=== PATIENT | male | born 1935 | race Caucasian/White ===

== ENCOUNTER 2016-12-28 10:57 | Emergency (ER) | payer MEDICARE, OTHER, MEDICAID ==
--- NOTE | 2016-12-28 11:06 | ER Document Report ---
ED Medical Screen (RME) - General Chief Complaint: Skin Sore(s) Stated Complaint: LEFT BUTTOCK WOUND Time Seen by Provider: 12/28/16 11:05 Notes: Patient presents after referral from dermatology office. He has a nonhealing right buttock decubitus ulcer. It is been failing outpatient therapy. TRAVEL OUTSIDE OF THE [place] IN LAST 30 DAYS: No - Related Data Allergies/Adverse Reactions: tamsulosin [From Flomax] Allergy (Verified 12/28/16 11:04) tobramycin Allergy (Verified 12/28/16 11:04) Past Medical History Renal/ Medical History: Denies: Hx Peritoneal Dialysis Physical Exam - Vital signs Vitals: Temp Pulse Resp BP Pulse Ox 97.8 F 114 H 22 H 122/67 97 12/28/16 11:03 12/28/16 11:03 12/28/16 11:03 12/28/16 11:03 12/28/16 11:03 Course - Vital Signs Vital signs: Temp Pulse Resp BP Pulse Ox 97.8 F 114 H 22 H 122/67 97 12/28/16 11:03 12/28/16 11:03 12/28/16 11:03 12/28/16 11:03 12/28/16 11:03
[2016-12-28] MEDS ORDERED: NORMAL SALINE 1000 ML 1,000 ML IV ONE (11:07)
[2016-12-28 11:45] LABS: VENOUS BLOOD BASE EXCESS 1.8 mmol/L; VENOUS BLOOD HCO3 27.6 mmol/L (20-32); VENOUS BLOOD PCO2 48.4 mmHg (35-63); VENOUS BLOOD PH 7.37 (7.30-7.42)
[2016-12-28 11:46] LABS: ABSOLUTE BASOPHILS # (AUTO) 0.1 10^3/uL (0.0-0.2); ABSOLUTE EOSINOPHILS # (AUTO) 0.2 10^3/uL (0.0-0.6); ABSOLUTE MONOCYTES (AUTO) 0.8 10^3/uL (0.1-1.4); ABSOLUTE NEUT (AUTO) 7.3 10^3/uL (1.7-8.2); BASOPHILS % (AUTO) 0.9 % (0-2); EOSINOPHILS % (AUTO) 2.6 % (0-6); HEMATOCRIT 31.4 % (37.9-51.0); HGB HCT DIFFERENCE -1.4; LYMPHOCYTES % (AUTO) 10.7 % (13-45); MEAN CORPUSCULAR HEMOGLOBIN 25.2 pg (27.0-33.4); MEAN CORPUSCULAR HGB CONC 31.7 g/dL (32.0-36.0); MEAN CORPUSCULAR VOLUME 80 fl (80-97); MONOCYTES % (AUTO) 8.4 % (3-13); RED BLOOD COUNT 3.94 10^6/uL (4.35-5.55); RED CELL DISTRIBUTION WIDTH 15.5 % (11.5-14.0); SEGMENTED NEUTROPHILS % (AUTO) 77.4 % (42-78); WHITE BLOOD COUNT 9.5 10^3/uL (4.0-10.5)
[2016-12-28 12:04] LABS: ALANINE AMINOTRANSFERASE 28 U/L (21-72); ALBUMIN 3.1 g/dL (3.5-5.0); ALKALINE PHOSPHATASE 96 U/L (38-126); ANION GAP 13 (5-19); ASPARTATE AMINO TRANSFERASE 27 U/L (17-59); BILIRUBIN,DIRECT 0.5 mg/dL (0.0-0.4); BILIRUBIN,TOTAL 0.6 mg/dL (0.2-1.3); BLOOD UREA NITROGEN 22 mg/dL (7-20); CALCIUM 10.2 mg/dL (8.4-10.2); CARBON DIOXIDE 27 mmol/L (22-30); CHLORIDE 100 mmol/L (98-107); GLUCOSE 131 mg/dL (75-110); POTASSIUM 4.7 mmol/L (3.6-5.0); SODIUM 139.6 mmol/L (137-145)
[2016-12-28 12:52] LABS: APPEARANCE,URINE CLEAR; BILIRUBIN,URINE NEGATIVE (NEGATIVE); GLUCOSE, URINE NEGATIVE (NEGATIVE); KETONES,URINE NEGATIVE (NEGATIVE); LEUKOCYTE ESTERASE,URINE NEGATIVE (NEGATIVE); NITRITE,URINE NEGATIVE (NEGATIVE); PROTEIN,URINE NEGATIVE (NEGATIVE); URINE SPECIFIC GRAVITY 1.003; UROBILINOGEN,URINE NEGATIVE mg/dL (<2.0)
--- NOTE | 2016-12-28 13:33 | ER Document Report ---
ED Skin Rash/Insect Bite/Abscs - General Mode of Arrival: Ambulatory Information source: Patient TRAVEL OUTSIDE OF THE [place] IN LAST 30 DAYS: No - HPI Patient complains to provider of: Skin rash/lesion, Tender/swollen area Onset: Other - several weeks Onset/Duration: Persistent Quality of rash: Painful Similar symptoms previously: Yes Recently seen / treated by doctor: Yes <MULUGETA MORALES - Last Filed: 12/28/16 13:22> <RAFA ROSADO - Last Filed: 12/28/16 14:51> - General Chief Complaint: Skin Sore(s) Stated Complaint: LEFT BUTTOCK WOUND Time Seen by Provider: 12/28/16 11:05 Notes: Patient is an 81-year-old male who presents to the emergency department today with complaints of a decubitus ulcer to the upper portion of his buttocks. Patient states he has had this sore for several weeks. Patient was seen by dermatology on December 19 and was told to come back if symptoms did not improve. Patient went back today and was sent here from dermatology. Patient states he does sit down most of the day, usually in a chair. Of note, the patient was undergoing a routine cardiac catheterization x2.5 weeks ago at [facility] when he began having chest pain just prior to the procedure and he was found to have a 100% blockage in a lower vessel but this was not stented. (MULUGETA MORALES) - Related Data Allergies/Adverse Reactions: tamsulosin [From Flomax] Allergy (Verified 12/28/16 11:06) tobramycin Allergy (Verified 12/28/16 11:06) Past Medical History - General Information source: Patient - Social History Smoking Status: Former Smoker - 30 years ago Cigarette use (# per day): No Frequency of alcohol use: None Drug Abuse: None Lives with: Alone Family History: Reviewed & Not Pertinent Patient has suicidal ideation: No Patient has homicidal ideation: No - Past Medical History Cardiac Medical History: Reports: Hx Coronary Artery Disease, Hx Heart Attack, Hx Hypercholesterolemia, Hx Hypertension Endocrine Medical History: Reports: Hx Diabetes Mellitus Type 2 - IDDM Renal/ Medical History: Reports: Hx Benign Prostatic Hyperplasia Malignancy Medical History: Reports Hx Prostate Cancer Past Surgical History: Reports: Hx Abdominal Surgery - AAA stented, Hx Cardiac Catheterization, Hx Orthopedic Surgery - right shoulder, Other - Radiation implants for prostate cancer <MULUGETA MORALES - Last Filed: 12/28/16 13:22> Review of Systems - Review of Systems Constitutional: denies: Fever EENT: No symptoms reported Cardiovascular: No symptoms reported Respiratory: No symptoms reported Gastrointestinal: No symptoms reported Genitourinary: No symptoms reported Male Genitourinary: No symptoms reported Musculoskeletal: No symptoms reported Skin: See HPI, Other - decubitus ulcer Hematologic/Lymphatic: No symptoms reported Neurological/Psychological: No symptoms reported -: Yes All other systems reviewed and negative <MULUGETA MORALES - Last Filed: 12/28/16 13:22> Physical Exam - Vital signs Interpretation: Normal - General General appearance: Appears well, Alert - HEENT Head: Normocephalic, Atraumatic Eyes: Normal Pupils: PERRL - Respiratory Respiratory status: No respiratory distress Breath sounds: Normal Chest palpation: Normal - Cardiovascular Rhythm: Regular Heart sounds: Normal auscultation Murmur: No - Abdominal Inspection: Normal Distension: No distension Bowel sounds: Normal Tenderness: Nontender Organomegaly: No organomegaly - Back Back: Normal, Nontender - Extremities General upper extremity: Normal inspection, Normal strength. No: Edema General lower extremity: Normal inspection, Normal strength. No: Edema - Neurological Neuro grossly intact: Yes Cognition: Normal Orientation: AAOx4 Juan A Coma Scale Eye Opening: Spontaneous [place] Coma Scale Verbal: Oriented [place] Coma Scale Motor: Obeys Commands [place] Coma Scale Total: 15 Speech: Normal - Psychological Associated symptoms: Normal affect, Normal mood <ANDREWMULUGETA - Last Filed: 12/28/16 13:22> <RAFA ROSADO - Last Filed: 12/28/16 14:51> - Vital signs Vitals: Temp Pulse Resp BP Pulse Ox 97.8 F 114 H 22 H 122/67 97 12/28/16 11:03 12/28/16 11:03 12/28/16 11:03 12/28/16 11:03 12/28/16 11:03 - Skin Notes: Two decubitus ulcers on upper portion of buttocks, one on the right gluteal cleft and one on the left gluteal cleft which touch when patient sits down. Both are 1.5 cm x 0.5 cm. Left ulcer is stage IV, able to be probed deep into subcutaneous tissue. Right is not as deep, there is eschar formation. (MULUGETA MORALES) Course - Laboratory Result Diagrams: 12/28/16 11:27 12/28/16 11:27 - Consults Surgery Time consulted: 13:27 Consulted provider: will come to ER <MULUGETA MORALES - Last Filed: 12/28/16 13:22> - Laboratory Result Diagrams: 12/28/16 11:27 12/28/16 11:27 - Consults Dr. Arnold Time consulted: 13:37 Consulted provider: will come to ER <RAFA ROSADO - Last Filed: 12/28/16 14:51> - Re-evaluation Re-evalutation: 12/28/16 14:48 Dr. Arnold came to see the patient and opened up the left-sided abscess to clean it out. It bled such that he had to place some chromic sutures in it. He will also put packing in. He attempted to get the patient scheduled for the wound care clinic but it would be 10 days before they can be seen, so he requests the patient go to [facility] on Sunday for follow-up. (RAFA ROSADO) - Vital Signs Vital signs: Temp Pulse Resp BP Pulse Ox 97.8 F 114 H 22 H 122/67 97 12/28/16 11:03 12/28/16 11:03 12/28/16 11:03 12/28/16 11:03 12/28/16 11:03 - Laboratory Laboratory results interpreted by me: 12/28/16 12/28/16 11:27 11:27 RBC 3.94 L Hgb 10.0 L Hct 31.4 L MCH 25.2 L MCHC 31.7 L RDW 15.5 H Lymphocytes % 10.7 L BUN 22 H Glucose 131 H Direct Bilirubin 0.5 H Albumin 3.1 L Discharge <MULUGETA MORALES - Last Filed: 12/28/16 13:22> <RAFA ROSADO - Last Filed: 12/28/16 14:51> - Discharge Clinical Impression: Decubitus ulcer Qualifiers: Pressure ulcer location: sacral region Pressure ulcer stage: stage 4 Qualified Code(s): L89.154 - Pressure ulcer of sacral region, stage 4 Condition: Stable Disposition: HOME, SELF-CARE Additional Instructions: Follow-up with [facility] on Sunday to have the packing removed and the wound evaluated. Take the dermatology office notes with you to the office visit on Sunday. Call the [facility] today or tomorrow to schedule an appointment time on Sunday. RETURN TO THE EMERGENCY ROOM IF ANY NEW OR WORSENING SYMPTOMS. Referrals: [facility] [Provider Group] - 01/01/17 (Call for an appointment time.) Scribe Attestation: 12/28/16 14:50 I personally performed the services described in the documentation, reviewed and edited the documentation which was dictated to the scribe in my presence, and it accurately records my words and actions. (RAFA ROSADO) Scribe Documentation - Scribe Written by Raysa:: Raysa Watson, 12/28/2016 1344 acting as scribe for :: Magali <MULUGETA MORALES - Last Filed: 12/28/16 13:22>
[2016-12-28] MEDS ORDERED: LIDOCAINE 1% INJ-PF (10 MG/ML) 30 ML SDV ONE (13:41)
[2016-12-28 15:11] VITALS: BP 128/69
--- NOTE | 2016-12-28 15:32 | OPERATIVE REPORT E ---
Operative Report NAME: DADA GILLETTE : 1935 AGE: 81Y DATE OF SURGERY: 12/28/2016 ROOM: PREOPERATIVE DIAGNOSES: 1. Sacral decubitus ulcer on the right sacral area about 2.5 cm, about stage 2 to 3 with necrotic tissue. 2. A left sacral decubitus ulcer about 1 cm in diameter but tracking down towards the rectum and tunneling about 3 cm deep. OPERATION: Sharp debridement of right sacral decubitus ulcer and unroofing of the left sacral decubitus ulcer about 3 cm distal towards the rectum. SURGEON: JEANCARLOS DELEON M.D. ANESTHESIA: Local with Xylocaine 1%. INDICATION: This is an 81-year-old male who has been having off and on sacral ulcers for the past 2 years. 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 The patient was then referred to come to the emergency room. Apparently the patient had a heart attack about 2 weeks ago, and he claims that his barrel rifler operator injected his decubitus ulcers a few weeks ago. DESCRIPTION OF PROCEDURE: The patient was placed in a prone position and the pericoccygeal area subsequently prepped and draped in the usual sterile fashion. Local anesthesia was infiltrated along the right sacral decubitus with necrotic skin. Next, the left partially open decubitus ulcer was then probed deep towards the rectum about 3 cm further. This track was then infiltrated with 1% Xylocaine. Next, the right coccygeal ulcer was debrided sharply with the use of an 11 blade. Partial debridement of the skin was then performed. There was also an indurated or hard area underneath the skin but no obvious abscess. Next, attention was then directed to the left coccygeal ulcer, and this was subsequently unroofed with the use of an 11 blade to about 3 cm distal towards the rectum. There was minimal necrotic tissue inside the cavity. There was some bleeding noted along the skin, and this was then controlled with a suture ligature using 5-0 and 3-0 Vicryl. About 6 sutures were placed to stop the bleeding primarily along the dermatologic layer. Skin was slightly thickened. The cavity was further inspected, and no evidence of further necrotic tissue underneath it. The ulcer site also tracked proximally, and this was then anesthetized with 1% Xylocaine and an incision made to further unroof this proximally to another 1 cm. Again, no evidence of necrotic tissue underneath. The ulcer appears to be quite deep and appears to be right at the fascial layer. Next, the cavity was subsequently packed with 1/4-inch Iodoform gauze. The hemostasis was controlled. Sterile dressings placed over the operative sites. The patient tolerated the procedure well. Estimated blood loss about 10 mL. The patient will be referred to the Surgical Clinic in about 48 to 72 hours. DICTATING PHYSICIAN: JEANCARLOS DELEON M.D. [id number] PHY#: [id number] ID: [id number] JOB#: [id number] ACCT: [id number] cc:JEANCARLOS DELEON M.D. >
== END 2016-12-28 15:10 | disposition home or self-care (01) ==
LOC: ER 10:57
PROC: 0J990ZZ Drainage of Buttock Subcutaneous Tissue and Fascia, Open Approach (ICD-10-PCS; principal; 2016-12-28)
DX: L89.154 Pressure ulcer of sacral region, stage 4 (principal); Z87.891 Personal history of nicotine dependence
CPT/HCPCS: 99284; 36415; 87040; 87086; 85025; 80053; 81001; 82803; 83605; 10061; J3490; J7030

== ENCOUNTER → 2017-01-12 | Outpatient (CLI) | payer MEDICARE, MEDICAID ==
[2017-01-12 12:27] LABS: ABSOLUTE BASOPHILS # (AUTO) 0.1 10^3/uL (0.0-0.2); ABSOLUTE EOSINOPHILS # (AUTO) 0.2 10^3/uL (0.0-0.6); ABSOLUTE LYMPHOCYTES (AUTO) 0.9 10^3/uL (0.5-4.7); ABSOLUTE MONOCYTES (AUTO) 0.6 10^3/uL (0.1-1.4); BASOPHILS % (AUTO) 0.6 % (0-2); EOSINOPHILS % (AUTO) 2.2 % (0-6); HEMATOCRIT 28.8 % (37.9-51.0); HEMOGLOBIN 9.4 g/dL (13.5-17.0); HGB HCT DIFFERENCE -0.6; LYMPHOCYTES % (AUTO) 9.5 % (13-45); MEAN CORPUSCULAR HGB CONC 32.8 g/dL (32.0-36.0); MEAN CORPUSCULAR VOLUME 79 fl (80-97); MONOCYTES % (AUTO) 5.7 % (3-13); RED BLOOD COUNT 3.63 10^6/uL (4.35-5.55); RED CELL DISTRIBUTION WIDTH 16.3 % (11.5-14.0); WHITE BLOOD COUNT 9.8 10^3/uL (4.0-10.5)
[2017-01-12 12:52] LABS: ALANINE AMINOTRANSFERASE 24 U/L (21-72); ALBUMIN 2.7 g/dL (3.5-5.0); ALKALINE PHOSPHATASE 91 U/L (38-126); ANION GAP 11 (5-19); ASPARTATE AMINO TRANSFERASE 20 U/L (17-59); BILIRUBIN,DIRECT 0.5 mg/dL (0.0-0.4); BILIRUBIN,TOTAL 0.6 mg/dL (0.2-1.3); BLOOD UREA NITROGEN 20 mg/dL (7-20); CALCIUM 9.8 mg/dL (8.4-10.2); CARBON DIOXIDE 26 mmol/L (22-30); CHLORIDE 102 mmol/L (98-107); CREATININE RESULT 1.04 mg/dL (0.52-1.25); GLUCOSE 146 mg/dL (75-110); POTASSIUM 4.2 mmol/L (3.6-5.0); SODIUM 139.3 mmol/L (137-145); TOTAL PROTEIN 5.9 g/dL (6.3-8.2)
[2017-01-12 13:11] LABS: ERYTHROCYTE SEDIMENTATION RATE 55 mm/hr (0-20)
[2017-01-12 13:14] LABS: C-REACTIVE PROTEIN 154.9 mg/L (<10.0)
== END ==
LOC: OD 11:17
PROVIDERS: ATTEND Nurse Practitioner Family
DX: L89.324 Pressure ulcer of left buttock, stage 4 (principal)
CPT/HCPCS: 36415; 80053; 85025; 85652; 86140

== ENCOUNTER → 2017-01-26 | Outpatient (CLI) | payer MEDICARE, MEDICAID ==
--- NOTE | 2017-01-26 15:39 | RADIOLOGY REPORT (SQ) ---
EXAM DESCRIPTION: PELVIS AP COMPLETED DATE/TIME: 01/26/2017 12:53 pm REASON FOR STUDY: PRESSURE ULCER SACRAL REGION, STAGE 4 L89.154 PRESSURE ULCER OF SACRAL REGION, ST AGE 2 COMPARISON: None. NUMBER OF VIEWS: One view TECHNIQUE: AP Pelvis LIMITATIONS: None. FINDINGS: MINERALIZATION: Normal. HIPS: No acute fracture or dislocation. No worrisome bone lesions. PELVIS AND SACRUM: No acute fracture or dislocation. No worrisome bone lesions. PUBIS AND ISCHIUM: No acute fracture. LOWER LUMBAR SPINE: No significant findings as visualized. SOFT TISSUES: No findings. OTHER: Iliac stents are present. IMPRESSION: There is no evidence of osteomyelitis. TECHNICAL DOCUMENTATION: JOB ID: [id number] [employer]- All Rights Reserved
== END ==
LOC: OD 12:32
PROVIDERS: ATTEND Surgery
DX: L89.154 Pressure ulcer of sacral region, stage 4 (principal)
CPT/HCPCS: 72170

== ENCOUNTER 2017-02-08 11:03 | Inpatient (IN) | payer MEDICARE, MEDICAID ==
[2017-02-08] MEDS ORDERED: NORMAL SALINE 1000 ML 1,000 ML IV PRN ×2 (11:29→13:43)
[2017-02-08] MEDS ORDERED: ONDANSETRON HCL INJ/PF 4 MG/2 ML SDV IV ONE (11:29)
--- NOTE | 2017-02-08 11:35 | ER Document Report ---
ED GI/ - General Stated Complaint: VOMITING,DIARRHEA Time Seen by Provider: 02/08/17 11:13 Mode of Arrival: Stretcher Information source: Patient TRAVEL OUTSIDE OF THE [place] IN LAST 30 DAYS: No - HPI Patient complains to provider of: Diarrhea, Vomiting Onset: This morning Quality of pain: No pain Associated symptoms: None Notes: 02/08/17 11:33 Patient is an 81-year-old male brought to the emergency room by EMS for vomiting and diarrhea, he reports that he was previously constipated and took half a bottle mag citrate yesterday evening, also ate some shrimp scampi, when he woke up this morning he had explosive diarrhea and an episode of vomiting, at time of my initial evaluation he reports feeling much better, denies any abdominal pain, no fevers, he does have a history of a sacral decubitus which she is seen at the wound care clinic for - Related Data Allergies/Adverse Reactions: tamsulosin [From Flomax] Allergy (Verified 12/28/16 11:06) tobramycin Allergy (Verified 12/28/16 11:06) Past Medical History - General Information source: Patient - Social History Smoking Status: Unknown if Ever Smoked Family History: Reviewed & Not Pertinent - Past Medical History Cardiac Medical History: Reports: Hx Coronary Artery Disease, Hx Heart Attack, Hx Hypercholesterolemia, Hx Hypertension Endocrine Medical History: Reports: Hx Diabetes Mellitus Type 2 - IDDM Renal/ Medical History: Reports: Hx Benign Prostatic Hyperplasia. Denies: Hx Peritoneal Dialysis Malignancy Medical History: Reports Hx Prostate Cancer Past Surgical History: Reports: Hx Abdominal Surgery - AAA stented, Hx Cardiac Catheterization, Hx Orthopedic Surgery - right shoulder, Other - Radiation implants for prostate cancer Review of Systems - Review of Systems Constitutional: No symptoms reported EENT: No symptoms reported Cardiovascular: No symptoms reported Respiratory: No symptoms reported Gastrointestinal: See HPI Genitourinary: No symptoms reported Male Genitourinary: No symptoms reported Musculoskeletal: No symptoms reported Skin: No symptoms reported Hematologic/Lymphatic: No symptoms reported Neurological/Psychological: No symptoms reported -: Yes All other systems reviewed and negative Physical Exam - Vital signs Vitals: Resp Pulse Ox 12 100 02/08/17 11:07 02/08/17 11:07 Interpretation: Normal - General General appearance: Appears well, Alert - HEENT Head: Normocephalic, Atraumatic Eyes: Normal Pupils: PERRL - Respiratory Respiratory status: No respiratory distress Chest status: Nontender Breath sounds: Normal Chest palpation: Normal - Cardiovascular Rhythm: Regular Heart sounds: Normal auscultation Murmur: No - Abdominal Inspection: Normal Distension: No distension Bowel sounds: Normal Tenderness: Nontender Organomegaly: No organomegaly - Rectal Notes: Large sacral decubiti 2, no active drainage, mild surrounding erythema - Back Back: Normal, Nontender - Extremities General upper extremity: Normal inspection, Nontender, Normal color, Normal ROM , Normal temperature General lower extremity: Normal inspection, Nontender, Normal color, Normal ROM , Normal temperature, Normal weight bearing. No: Sharee's sign Knee: Other - Multiple abrasions to bilateral knees with ecchymosis to bilateral lower legs - Neurological Neuro grossly intact: Yes Cognition: Normal Orientation: AAOx4 [place] Coma Scale Eye Opening: Spontaneous Juan A Coma Scale Verbal: Oriented Juan A Coma Scale Motor: Obeys Commands Juan A Coma Scale Total: 15 Speech: Normal Motor strength normal: LUE, RUE, LLE, RLE Sensory: Normal - Psychological Associated symptoms: Normal affect, Normal mood - Skin Skin Temperature: Warm Skin Moisture: Dry Skin Color: Normal Course - Re-evaluation Re-evalutation: 02/08/17 17:06 Patient was discussed with Dr. Osorio who agrees to admit for further evaluation and treatment - Vital Signs Vital signs: Temp Pulse Resp BP Pulse Ox 97.7 F 90 20 190/94 H 98 02/08/17 12:02 02/08/17 12:02 02/08/17 14:01 02/08/17 14:01 02/08/17 14:00 - Laboratory Result Diagrams: 02/08/17 11:53 02/08/17 11:53 Laboratory results interpreted by me: 02/08/17 02/08/17 02/08/17 11:53 11:53 15:03 WBC 16.0 H RBC 4.34 L Hgb 11.0 L Hct 34.5 L MCH 25.4 L MCHC 31.9 L RDW 17.4 H Seg Neuts % (Manual) 85 H Band Neutrophils % 1 L Lymphocytes % (Manual) 9 L Abs Neuts (Manual) 13.8 H BUN 33 H Creatinine 1.47 H Est GFR ( Amer) 55 L Est GFR (Non-Af Amer) 46 L Glucose 254 H Direct Bilirubin 0.6 H Albumin 3.1 L Lipase 18.0 L Urine Protein 100 H Urine Ketones TRACE H Urine Blood MODERATE H Urine Urobilinogen 2.0 H - Diagnostic Test Radiology reviewed: Image reviewed, Reports reviewed Discharge - Discharge Clinical Impression: Vomiting and diarrhea, Partial small bowel obstruction, Colitis Pneumonia Qualifiers: Pneumonia type: due to unspecified organism Laterality: right Lung location: lower lobe of lung Qualified Code(s): J18.1 - Lobar pneumonia, unspecified organism Condition: Stable Disposition: ADMITTED INPATIENT Admitting Provider: Hospitalist Unit Admitted: Medical Floor Referrals: CATRACHO DUBOSE PA [Primary Care Provider] - Follow up as needed
[2017-02-08 12:25] LABS: HEMATOCRIT 34.5 % (37.9-51.0); HGB HCT DIFFERENCE -1.5; MEAN CORPUSCULAR HEMOGLOBIN 25.4 pg (27.0-33.4); MEAN CORPUSCULAR HGB CONC 31.9 g/dL (32.0-36.0); MEAN CORPUSCULAR VOLUME 80 fl (80-97); RED BLOOD COUNT 4.34 10^6/uL (4.35-5.55); RED CELL DISTRIBUTION WIDTH 17.4 % (11.5-14.0)
[2017-02-08 12:39] LABS: ALANINE AMINOTRANSFERASE 28 U/L (21-72); ALBUMIN 3.1 g/dL (3.5-5.0); ALKALINE PHOSPHATASE 89 U/L (38-126); ANION GAP 14 (5-19); ASPARTATE AMINO TRANSFERASE 31 U/L (17-59); BILIRUBIN,DIRECT 0.6 mg/dL (0.0-0.4); BILIRUBIN,TOTAL 0.6 mg/dL (0.2-1.3); BLOOD UREA NITROGEN 33 mg/dL (7-20); CALCIUM 9.8 mg/dL (8.4-10.2); CARBON DIOXIDE 25 mmol/L (22-30); CHLORIDE 104 mmol/L (98-107); CREATININE RESULT 1.47 mg/dL (0.52-1.25); GLUCOSE 254 mg/dL (75-110); POTASSIUM 4.7 mmol/L (3.6-5.0); SODIUM 143.1 mmol/L (137-145); TOTAL PROTEIN 6.9 g/dL (6.3-8.2)
[2017-02-08 12:54] LABS: ANISOCYTOSIS 1+; BAND NEUTROPHILS % (MANUAL) 1 % (3-5); BASOPHILS % (MANUAL) 0 % (0-2); EOSINOPHILS % (MANUAL) 0 % (0-6); LYMPHOCYTES % (MANUAL) 9 % (13-45); MICROCYTOSIS SLIGHT; POLYCHROMASIA SLIGHT; TOTAL CELLS COUNTED 100; TOXIC GRANULATION SLIGHT
[2017-02-08 12:55] LABS: PLATELET CLUMPS PRESENT
[2017-02-08] MEDS ORDERED: ACETAMINOPHEN 325 MG TABLET PO ONE (13:43)
[2017-02-08 15:25] LABS: APPEARANCE,URINE SLIGHTLY-CLOUDY; BILIRUBIN,URINE NEGATIVE (NEGATIVE); GLUCOSE, URINE NEGATIVE (NEGATIVE); KETONES,URINE TRACE mg/dL (NEGATIVE); LEUKOCYTE ESTERASE,URINE NEGATIVE (NEGATIVE); NITRITE,URINE NEGATIVE (NEGATIVE); PROTEIN,URINE 100 mg/dL (NEGATIVE); URINE SPECIFIC GRAVITY 1.021
--- NOTE | 2017-02-08 16:54 | RADIOLOGY REPORT (SQ) ---
EXAM DESCRIPTION: CT ABD/PELVIS WITH IV ONLY COMPLETED DATE/TIME: 02/08/2017 4:19 pm REASON FOR STUDY: abd pain COMPARISON: None. TECHNIQUE: CT scan of the abdomen and pelvis performed using helical scanning technique with dynamic intravenous contrast injection. No oral contrast. Images reviewed with lung, soft tissue, and bone windows. Reconstructed coronal and sagittal MPR images reviewed. Delayed images for evaluation of the urinary system also acquired. All images stored on PACS. All CT scanners at this facility use dose modulation, iterative reconstruction, and/or weight based d osing when appropriate to reduce radiation dose to as low as reasonably achievable (ALARA). [facility]: Dose Right [facility]: CareDose [facility]: Dose Right [facility]: Teradose 4D [facility]: Amvona CONTRAST TYPE AND DOSE: contrast/concentration: Isovue 370.00 mg/ml; Total Contrast Delivered: 99.0 ml; Total Saline Delivered: 45.0 ml RENAL FUNCTION: Creatinine 1.5 BUN 33 RADIATION DOSE: Up-to-date CT equipment and radiation dose reduction techniques were employed. CTDIv ol: 5.8 - 7.5 mGy. DLP: 705 mGy-cm.. LIMITATIONS: None. FINDINGS: LOWER CHEST: Opacification is present right lower lobe. Peripheral blebs are present on t he right. A minimal pneumothorax cannot entirely be excluded. LIVER: Normal size. No masses. No dilated ducts. SPLEEN: Normal size. No focal lesions. PANCREAS: No masses. No significant calcifications. No adjacent inflammation or peripancreatic fluid collections. Pancreatic duct not dilated. GALLBLADDER: No identified stones by CT criteria. No inflammatory changes to suggest cholecystitis. ADRENAL GLANDS: No significant masses or asymmetry. RIGHT KIDNEY AND URETER: No solid masses. Nonobstructing upper calyceal calculi are present. No h ydronephrosis or hydroureter. LEFT KIDNEY AND URETER: No solid masses. Nonobstructing intrarenal calculi include an 8 mm lower ca lyceal stone. No hydronephrosis or hydroureter. 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 The aorta narrows in the infrarenal portion but then widens again and there is a large aneurysm invol ving the bifurcation. Stents are present in the iliac arteries and in the distal aorta. RETROPERITONEUM: No retroperitoneal adenopathy, hemorrhage or masses. BOWEL AND PERITONEAL CAVITY: There is somewhat dilated loop of jejunum that measures 4 cm in diameter . No definite transition point is seen. There is considerable large and small bowel gas in abdomen. The ileum is normal in caliber. Stomach is distended with air and fluid. There is mild thickening of the wall of the sigmoid colon and rectum. APPENDIX: Not identified. PELVIS: No mass. No free fluid. Normal bladder. ABDOMINAL WALL: No masses. No hernias. BONES: No significant or acute findings. OTHER: No other significant finding. IMPRESSION: 1. Peripheral emphysematous blebs are present, more on the right. A minimal pneumothor ax cannot entirely be excluded on the right, although the appearance may be secondary to contiguous b lebs. 2. A limited infiltrate or bronchiectasis cannot be excluded in the right lower lobe. 3. Nonobstructing intrarenal calculi. 4. Partial small bowel obstruction, likely at the distal jejunum or proximal ileum. 5. Mild thickening of the wall of the sigmoid colon and rectum, possible inflammatory bowel change. 6. There are 2 areas of aneurysmal dilatation in the aorta with stents in the distal aorta and the i liac arteries. TECHNICAL DOCUMENTATION: JOB ID: [id number] Quality ID # [id number]: Final reports with documentation of one or more dose reduction techniques (e.g., Au tomated exposure control, adjustment of the mA and/or kV according to patient size, use of iterative reconstruction technique) 2010 [employer]- All Rights Reserved
[2017-02-08] MEDS ORDERED: METRONIDAZOLE 500 MG/NS RTU 100 ML IV ONE (17:08)
[2017-02-08] MEDS ORDERED: CIPROFLOXACIN 400 MG/D5W RTU 400 MG/200 ML RTUPB IV ONE (17:09)
[2017-02-08] MEDS ORDERED: ONDANSETRON HCL INJ/PF 4 MG/2 ML SDV IV PRN (18:46)
[2017-02-08] MEDS ORDERED: INSULIN REG, HUMAN 100 UNIT/ML 3 ML VIAL (PYX) SUBCUT PRN (18:53)
[2017-02-08] MEDS ORDERED: DEXTROSE 50%-WATER 25 GM/50 ML DISP.SYRIN IV PRN ×4 (18:53→23:24)
[2017-02-08] MEDS ORDERED: GLUCAGON,HUMAN RECOMB 1 MG INJ IM PRN (18:53)
[2017-02-08] MEDS ORDERED: DEXTROSE 40% GEL 15 GM TUBE PO PRN ×4 (18:53→23:24)
[2017-02-08] MEDS ORDERED: HYDRALAZINE HCL INJ/PF 20 MG/1 ML SDV IV PRN (18:54)
--- NOTE | 2017-02-08 18:59 | PDOC H&P ---
History of Present Illness Admission Date/PCP: 02/08/17 17:14 RHINA LI Patient complains of: Diarrhea History of Present Illness: Patient is an 81-year-old male brought to the emergency room by EMS for vomiting and diarrhea, he reports that he was previously constipated and took half a bottle mag citrate yesterday evening and also ate shrimp scampi, when he woke up this morning he had explosive diarrhea and an episode of vomiting. The ambulance was called and the patient was brought to the emergency room for evaluation where he was given intravenous fluids. He denies any abdominal pain other than cramping earlier, no fevers, he does have a history of a sacral decubitus which she is seen at the wound care clinic and patient reports no foul -smelling drainage. His diarrhea was mixed with small amount of blood. No reported chills or fever, exposure to persons sick with diarrhea, nor recent antibiotic intake. Patient was then referred for admission. Past Medical History Cardiac Medical History: Reports: Coronary Artery Disease, Myocardial Infarction , Hyperlipidema, Hypertension Endocrine Medical History: Reports: Diabetes Mellitus Type 2 - IDDM Past Surgical History Past Surgical History: Reports: Cardiac Catheterization, Orthopedic Surgery - right shoulder, Other - Radiation implants for prostate cancer Social History Information Source: Patient Smoking Status: Former Smoker Frequency of Alcohol Use: None Hx Recreational Drug Use: No Drugs: None Family History Family History: None - Unknown to the patient Parental Family History Reviewed: Yes Children Family History Reviewed: Yes Sibling(s) Family History Reviewed.: Yes Medication/Allergy Home Medications: Acetaminophen [Tylenol] 325 mg PO Q4HP PRN 02/08/17 Ezetimibe [Zetia 10 mg Tablet] 10 mg PO DAILY 02/08/17 Hydroxyzine HCl 10 mg PO Q12 02/08/17 Insulin Glargine,Hum.rec.anlog [Lantus] 15 unit SQ QHS 02/08/17 Insulin Lispro [Humalog] 5 unit SQ AC 02/08/17 Isosorbide Mononitrate [Isosorbide Mononitrate ER] 30 mg PO DAILY 02/08/17 Metoprolol Succinate [Toprol Xl 25 mg Tab.sr] 25 mg PO DAILY 02/08/17 Oxycodone HCl [Oxycontin] 15 mg PO Q4H 02/08/17 Ramipril [Altace 5 mg Capsule] 5 mg PO DAILY 02/08/17 Silodosin [Rapaflo] 8 mg PO DAILY 02/08/17 Simvastatin [Zocor 40 mg Tablet] 40 mg PO DAILY 02/08/17 Zolpidem Tartrate [Ambien] 10 mg PO QHS 02/08/17 Allergies/Adverse Reactions: tamsulosin [From Flomax] Allergy (Verified 02/09/17 04:59) tobramycin Allergy (Verified 02/09/17 04:59) Review of Systems Constitutional: ABSENT: chills, fever(s), headache(s), weakness, weight gain, weight loss Eyes: ABSENT: visual disturbances Ears: ABSENT: hearing changes Nose, Mouth, and Throat: ABSENT: mouth pain, sore throat Cardiovascular: ABSENT: chest pain, dyspnea on exertion, edema, orthropnea, palpitations Respiratory: ABSENT: cough, dyspnea, hemoptysis Gastrointestinal: PRESENT: abdominal pain, constipation, diarrhea, nausea, vomiting. ABSENT: coffee ground emesis, hematemesis, hematochezia, melena Genitourinary: ABSENT: difficulty urinating, dysuria, hematuria Musculoskeletal: ABSENT: joint swelling Integumentary: PRESENT: wounds - Being followed in the wound clinic for decubitus ulcers. ABSENT: pruritus, rash Neurological: ABSENT: abnormal gait, abnormal speech, confusion, dizziness, focal weakness, syncope Psychiatric: ABSENT: anxiety, depression, homidical ideation, suicidal ideation Endocrine: ABSENT: cold intolerance, heat intolerance, polydipsia, polyuria Hematologic/Lymphatic: ABSENT: easy bleeding, easy bruising Physical Exam Vital Signs: Temp Pulse Resp BP Pulse Ox 97.7 F 90 23 H 173/94 H 100 02/08/17 12:02 02/08/17 12:02 02/08/17 17:01 02/08/17 17:01 02/08/17 17:01 General appearance: PRESENT: no acute distress, cooperative Head exam: PRESENT: atraumatic, normocephalic Eye exam: PRESENT: conjunctiva pink, EOMI, PERRLA. ABSENT: scleral icterus Ear exam: PRESENT: normal external ear exam. ABSENT: drainage Mouth exam: PRESENT: dry mucosa, neck supple, tongue midline Throat exam: ABSENT: post pharyngeal erythema, tonsillar erythema Neck exam: ABSENT: carotid bruit, JVD, lymphadenopathy, thyromegaly Respiratory exam: PRESENT: clear to auscultation joseph, unlabored. ABSENT: rales , rhonchi, wheezes Cardiovascular exam: PRESENT: RRR, systolic murmur - Left sternal border 2/6. ABSENT: diastolic murmur, rubs Pulses: PRESENT: normal dorsalis pedis pul Vascular exam: PRESENT: normal capillary refill GI/Abdominal exam: PRESENT: distended - Minimal, normal bowel sounds, soft, tenderness - Minimal. ABSENT: guarding, mass, organolmegaly, rebound Rectal exam: PRESENT: deferred Extremities exam: PRESENT: full ROM. ABSENT: calf tenderness, clubbing, pedal edema Neurological exam: PRESENT: alert, awake, oriented to person, oriented to place , oriented to time, oriented to situation Psychiatric exam: PRESENT: appropriate affect, normal mood. ABSENT: homicidal ideation, suicidal ideation Skin exam: PRESENT: dry, warm, other - Patient has multiple scars and abrasions on both lower extremities. There is a stage II decubitus ulcer on the sacral region on the buttocks bilaterally medially but no purulent drainage noted.. ABSENT: cyanosis Results Impressions: Abdomen/Pelvis CT 02/08/17 15:32 IMPRESSION: 1. Peripheral emphysematous blebs are present, more on the right. A minimal pneumothorax cannot entirely be excluded on the right, although the appearance may be secondary to contiguous blebs. 2. A limited infiltrate or bronchiectasis cannot be excluded in the right lower lobe. 3. Nonobstructing intrarenal calculi. 4. Partial small bowel obstruction, likely at the distal jejunum or proximal ileum. 5. Mild thickening of the wall of the sigmoid colon and rectum, possible inflammatory bowel change. 6. 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 Assessment & Plan - Diagnosis (1) Colitis Is this a current diagnosis for this admission?: Yes (2) Partial small bowel obstruction Is this a current diagnosis for this admission?: Yes (3) Decubitus ulcer limited to breakdown of skin (stage 2) Qualifiers: Pressure ulcer location: sacral region Qualified Code(s): L89.152 - Pressure ulcer of sacral region, stage 2 Is this a current diagnosis for this admission?: Yes (4) Dehydration Is this a current diagnosis for this admission?: Yes (5) Renal calculi Is this a current diagnosis for this admission?: Yes (6) Uncontrolled hypertension Is this a current diagnosis for this admission?: Yes (7) Coronary artery disease Qualifiers: Coronary Disease-Associated Artery/Lesion type: [place] artery [place] vs. transplanted heart: [place] heart Associated angina: without angina Qualified Code(s): I25.10 - Atherosclerotic heart disease of [place] coronary artery without angina pectoris Is this a current diagnosis for this admission?: Yes (8) Hyperlipidemia Qualifiers: Hyperlipidemia type: unspecified Qualified Code(s): E78.5 - Hyperlipidemia , unspecified Is this a current diagnosis for this admission?: Yes (9) Diabetes mellitus type 2 in nonobese Is this a current diagnosis for this admission?: Yes (10) BPH (benign prostatic hyperplasia) Qualifiers: Lower urinary tract symptom presence: unspecified whether lower urinary tract symptoms present Qualified Code(s): N40.0 - Benign prostatic hyperplasia without lower urinary tract symptoms Is this a current diagnosis for this admission?: Yes (11) History of prostate cancer Is this a current diagnosis for this admission?: Yes - Time Time Spent: 50 to 70 Minutes - Inpatient Certification Based on my medical assessment, after consideration of the patient's comorbidities, presenting symptoms, or acuity I expect that the services needed warrant INPATIENT care.: Yes I certify that my determination is in accordance with my understanding of Medicare's requirements for reasonable and necessary INPATIENT services [42 CFR 412.3e].: Yes Medical Necessity: Significant Comorbidiites Make Outpatient Treatment Too Risky , Need Close Monitoring Due to Risk of Patient Decompensation, Need For IV Fluids, Need for IV Antibiotics, Risk of Complication if Not Cared For in Hospital Post Hospital Care: D/C Manager Money Documentation - Plan Summary Plan Summary: The patient will be admitted to the medical floor. We will hydrate the patient with normal saline. Patient had bowel movement so unlikely having mechanical obstruction therefore I will start the patient on liquid diet. Cultures will be done with a urine as well as the blood. We will check stool culture as well. Begin intravenous Invanz. DVT prophylaxis with Lovenox will be placed. At this time she will be placed on sliding scale insulin for his diabetes. We will give as needed hydralazine for uncontrolled blood pressure. We will consult surgery for management of decubitus ulcers as well first for evaluation of the partial small bowel obstruction. Further testing depends on initial evaluation and response to treatment as outlined above.
[2017-02-08] MEDS ORDERED: LEVOFLOXACIN 500 MG/D5W RTU 500 MG/100 ML RTUPB IV ONE (23:00)
--- NOTE | 2017-02-08 23:21 | PDOC CONSULTATION ---
Consultation Consult reason:: Evaluate for possible bowel obstruction History of Present Illness Admission Date/PCP: 02/08/17 18:30 RHINA LI History of Present Illness: 81-year-old male presenting with 2 day history of nausea and vomiting and profuse diarrhea. Has been noted with bloody bowel movements during this admission. Unknown whether he has had any fevers or chills. He has had some mild lower abdominal pain. Has not had any emesis today. No prior abdominal surgeries. No prior colonoscopies. No prior known bowel disease. He has diabetes and coronary artery disease status post myocardial infarction in the past. He has aortoiliac stents in place. Past Medical History Cardiac Medical History: Reports: Coronary Artery Disease, Myocardial Infarction , Hyperlipidema, Hypertension Endocrine Medical History: Reports: Diabetes Mellitus Type 2 - IDDM Past Surgical History Past Surgical History: Reports: Cardiac Catheterization, Orthopedic Surgery - right shoulder, Other - Radiation implants for prostate cancer Social History Smoking Status: Unknown if Ever Smoked - Advance Directive Resuscitation Status: Full Code Family History Family History: None - Unknown to the patient Parental Family History Reviewed: No Children Family History Reviewed: No Sibling(s) Family History Reviewed.: No Medication/Allergy Home Medications: Acetaminophen [Tylenol] 325 mg PO Q4HP PRN 02/08/17 Ezetimibe [Zetia 10 mg Tablet] 10 mg PO DAILY 02/08/17 Hydroxyzine HCl 10 mg PO Q12 02/08/17 Insulin Glargine,Hum.rec.anlog [Lantus] 15 unit SQ QHS 02/08/17 Insulin Lispro [Humalog] 5 unit SQ AC 02/08/17 Isosorbide Mononitrate [Isosorbide Mononitrate ER] 30 mg PO DAILY 02/08/17 Metoprolol Succinate [Toprol Xl 25 mg Tab.sr] 25 mg PO DAILY 02/08/17 Oxycodone HCl [Oxycontin] 15 mg PO Q4H 02/08/17 Ramipril [Altace 5 mg Capsule] 5 mg PO DAILY 02/08/17 Silodosin [Rapaflo] 8 mg PO DAILY 02/08/17 Simvastatin [Zocor 40 mg Tablet] 40 mg PO DAILY 02/08/17 Zolpidem Tartrate [Ambien] 10 mg PO QHS 02/08/17 Allergies/Adverse Reactions: tamsulosin [From Flomax] Allergy (Verified 12/28/16 11:06) tobramycin Allergy (Verified 12/28/16 11:06) Physical Exam Vital Signs: Temp Pulse Resp BP Pulse Ox 99.1 F 93 18 152/73 H 100 02/08/17 19:39 02/08/17 19:39 02/08/17 19:39 02/08/17 19:39 02/08/17 19:39 General appearance: PRESENT: no acute distress, cooperative Eye exam: PRESENT: conjunctiva pink Respiratory exam: PRESENT: clear to auscultation joseph Cardiovascular exam: PRESENT: RRR, systolic murmur GI/Abdominal exam: PRESENT: other - Soft, nondistended, mild lower abdominal tenderness without peritoneal signs. Skin exam: PRESENT: other - 2 sacral decubitus ulcers which are clean with no erythema no drainage. Appears to be granulating. Results Impressions: Abdomen/Pelvis CT 02/08/17 15:32 IMPRESSION: 1. Peripheral emphysematous blebs are present, more on the right. A minimal pneumothorax cannot entirely be excluded on the right, although the appearance may be secondary to contiguous blebs. 2. A limited infiltrate or bronchiectasis cannot be excluded in the right lower lobe. 3. Nonobstructing intrarenal calculi. 4. Partial small bowel obstruction, likely at the distal jejunum or proximal ileum. 5. Mild thickening of the wall of the sigmoid colon and rectum, possible inflammatory bowel change. 6. 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 Assessment & Plan - Diagnosis (1) Colitis Is this a current diagnosis for this admission?: Yes Plan: I do not think he has a bowel obstruction. He has not had any emesis today. He is having fairly profuse diarrhea. Concerning for ischemic colitis. Recommend n.p.o. and Levaquin and Flagyl. IV hydration. Recommend gastroenterology consultation for possible endoscopic evaluation of his colon. (2) Decubitus ulcer Qualifiers: Pressure ulcer location: sacral region Is this a current diagnosis for this admission?: Yes Plan: Appears very clean and it is granulating. Long-standing. Defer to wound care clinic for management.
[2017-02-08] MEDS ORDERED: GLUCAGON,HUMAN RECOMB 1 MG INJ SUBCUT PRN (23:24)
[2017-02-08] MEDS: NORMAL SALINE 1000 ML 1,000 ML IV PRN (23:25)
[2017-02-09] MEDS: METRONIDAZOLE 500 MG/NS RTU 100 ML IV SCH ×5 (01:51→23:35)
[2017-02-09] MEDS ORDERED: INFLUENZA ADLT QUAD (36MOS+) 2017-18 VAC 0.5 ML SYR IM PRN (05:18)
[2017-02-09 05:20] LABS: ABSOLUTE LYMPHOCYTES (AUTO) 0.6 10^3/uL (0.5-4.7); ABSOLUTE MONOCYTES (AUTO) 0.6 10^3/uL (0.1-1.4); BASOPHILS % (AUTO) 0.3 % (0-2); EOSINOPHILS % (AUTO) 0.1 % (0-6); HEMATOCRIT 29.9 % (37.9-51.0); HEMOGLOBIN 9.8 g/dL (13.5-17.0); HGB HCT DIFFERENCE -0.5; LYMPHOCYTES % (AUTO) 5.2 % (13-45); MEAN CORPUSCULAR HEMOGLOBIN 25.7 pg (27.0-33.4); MEAN CORPUSCULAR HGB CONC 32.7 g/dL (32.0-36.0); MEAN CORPUSCULAR VOLUME 79 fl (80-97); RED BLOOD COUNT 3.81 10^6/uL (4.35-5.55); RED CELL DISTRIBUTION WIDTH 17.5 % (11.5-14.0); SEGMENTED NEUTROPHILS % (AUTO) 89.4 % (42-78); WHITE BLOOD COUNT 11.1 10^3/uL (4.0-10.5)
[2017-02-09 05:23] LABS: ANION GAP 6 (5-19); BLOOD UREA NITROGEN 29 mg/dL (7-20); CALCIUM 8.6 mg/dL (8.4-10.2); CARBON DIOXIDE 25 mmol/L (22-30); CHLORIDE 108 mmol/L (98-107); CREATININE RESULT 0.97 mg/dL (0.52-1.25); GLUCOSE 147 mg/dL (75-110); MAGNESIUM 1.7 mg/dL (1.6-2.3); PHOSPHORUS 2.9 mg/dL (2.5-4.5); POTASSIUM 4.5 mmol/L (3.6-5.0); SODIUM 139.4 mmol/L (137-145)
[2017-02-09] MEDS: LANSOPRAZOLE 30 MG TAB.RAP.DR PO SCH (05:42)
--- NOTE | 2017-02-09 08:03 | RADIOLOGY REPORT (SQ) ---
EXAM DESCRIPTION: KUB/ABDOMEN (SINGLE VIEW) COMPLETED DATE/TIME: 02/09/2017 7:47 am REASON FOR STUDY: Obstruction COMPARISON: CT abdomen and pelvis 02/08/2017. NUMBER OF VIEWS: One view. TECHNIQUE: Supine radiographic image of the abdomen acquired. LIMITATIONS: None. FINDINGS: BOWEL GAS PATTERN: Nonspecific bowel gas pattern with mild gaseous distension of small bow el loops to 3.2 cm. Gas is seen at the colon. CALCIFICATIONS: Vascular calcifications are noted. SOFT TISSUES: No gross mass or suggestion of organomegaly. 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 BONES: Multilevel degenerative changes in the spine. OTHER: Excreted contrast is seen at the urinary bladder. IMPRESSION: Nonspecific bowel gas pattern. TECHNICAL DOCUMENTATION: JOB ID: [id number] [employer]- All Rights Reserved
[2017-02-09] MEDS: ENOXAPARIN SODIUM INJ 40 MG/0.4 ML DISP.SYRIN SUBCUT SCH (09:19)
[2017-02-09] MEDS ORDERED: ERTAPENEM SODIUM INJ 1 GM VIAL IV SCH (10:00)
--- NOTE | 2017-02-09 10:34 | PDOC PROGRESS REPORT ---
Subjective Progress Note for:: 02/09/17 Subjective:: Follow up for diarrhea and blood per rectum. Physical Exam Vital Signs: Temp Pulse Resp BP Pulse Ox 98.2 F 81 18 142/64 H 99 02/09/17 07:40 02/09/17 07:40 02/09/17 07:40 02/09/17 07:40 02/09/17 07:40 Intake & Output 02/08/17 02/09/17 02/10/17 06:59 06:59 06:59 Intake Total 1906 Balance 1906 Weight 65.2 kg General appearance: PRESENT: no acute distress, cooperative Eye exam: PRESENT: EOMI Ear exam: PRESENT: normal external ear exam Mouth exam: PRESENT: moist Respiratory exam: PRESENT: clear to auscultation joseph Cardiovascular exam: PRESENT: RRR GI/Abdominal exam: PRESENT: normal bowel sounds, soft. ABSENT: rebound, tenderness Rectal exam: PRESENT: deferred Neurological exam: PRESENT: alert, awake, oriented to person, oriented to place , oriented to time Psychiatric exam: PRESENT: normal mood Results Laboratory Results: 02/09/17 04:42 02/09/17 04:42 02/09/17 02/09/17 04:42 04:42 WBC 11.1 H RBC 3.81 L Hgb 9.8 L Hct 29.9 L MCV 79 L MCH 25.7 L MCHC 32.7 RDW 17.5 H Plt Count 229 Seg Neutrophils % 89.4 H Lymphocytes % 5.2 L Monocytes % 5.0 Eosinophils % 0.1 Basophils % 0.3 Absolute Neutrophils 10.0 H Absolute Lymphocytes 0.6 Absolute Monocytes 0.6 Absolute Eosinophils 0.0 Absolute Basophils 0.0 Sodium 139.4 Potassium 4.5 Chloride 108 H Carbon Dioxide 25 Anion Gap 6 BUN 29 H Creatinine 0.97 Est GFR ( Amer) > 60 Est GFR (Non-Af Amer) > 60 Glucose 147 H Calcium 8.6 Phosphorus 2.9 Magnesium 1.7 Impressions: Abdomen/Pelvis CT 02/08/17 15:32 IMPRESSION: 1. Peripheral emphysematous blebs are present, more on the right. A minimal pneumothorax cannot entirely be excluded on the right, although the appearance may be secondary to contiguous blebs. 2. A limited infiltrate or bronchiectasis cannot be excluded in the right lower lobe. 3. Nonobstructing intrarenal calculi. 4. Partial small bowel obstruction, likely at the distal jejunum or proximal ileum. 5. Mild thickening of the wall of the sigmoid colon and rectum, possible inflammatory bowel change. 6. 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 KUB X-Ray 02/09/17 00:00 IMPRESSION: Nonspecific bowel gas pattern. Assessment & Plan - Diagnosis (1) Colitis Is this a current diagnosis for this admission?: Yes - Plan Summary Plan Summary: Discussed with Dr. Osorio. Patient has not had a BM overnight. It appears that the blood per rectum was anal irritation. Abdominal xray this morning was reviewed. I agree with the radiologist impression. There is diffuse gas thru out the small bowel and colon. Agree with current management of NPO and IV AB.
[2017-02-09] MEDS ORDERED: BACITRACIN ZINC OINTMENT 15 GM TP PRN (10:40)
--- NOTE | 2017-02-09 11:50 | PDOC PROGRESS REPORT ---
Subjective Progress Note for:: 02/09/17 Subjective:: The patient feels a lot better this morning. Diarrhea is improving. Still with small amounts of rectal bleeding otherwise denies any vomiting this time. Nausea has improved. Still have some fullness of the abdomen but nothing significant according to the patient. No chills or fever. Physical Exam Vital Signs: Temp Pulse Resp BP Pulse Ox 98.2 F 81 18 142/64 H 99 02/09/17 07:40 02/09/17 07:40 02/09/17 07:40 02/09/17 07:40 02/09/17 07:40 Intake & Output 02/08/17 02/09/17 02/10/17 06:59 06:59 06:59 Intake Total 1906 Balance 1906 Weight 65.2 kg General appearance: PRESENT: no acute distress, cooperative Head exam: PRESENT: normocephalic Eye exam: PRESENT: EOMI Mouth exam: PRESENT: moist, neck supple Neck exam: ABSENT: JVD Respiratory exam: PRESENT: clear to auscultation joseph. ABSENT: rhonchi, wheezes Cardiovascular exam: PRESENT: RRR. ABSENT: gallop GI/Abdominal exam: PRESENT: soft. ABSENT: distended, tenderness Extremities exam: ABSENT: pedal edema Neurological exam: PRESENT: alert, awake, oriented to situation Skin exam: PRESENT: dry, warm. ABSENT: cyanosis Results Laboratory Results: 02/09/17 04:42 02/09/17 04:42 02/09/17 02/09/17 04:42 04:42 WBC 11.1 H RBC 3.81 L Hgb 9.8 L Hct 29.9 L MCV 79 L MCH 25.7 L MCHC 32.7 RDW 17.5 H Plt Count 229 Seg Neutrophils % 89.4 H Lymphocytes % 5.2 L Monocytes % 5.0 Eosinophils % 0.1 Basophils % 0.3 Absolute Neutrophils 10.0 H Absolute Lymphocytes 0.6 Absolute Monocytes 0.6 Absolute Eosinophils 0.0 Absolute Basophils 0.0 Sodium 139.4 Potassium 4.5 Chloride 108 H Carbon Dioxide 25 Anion Gap 6 BUN 29 H Creatinine 0.97 Est GFR ( Amer) > 60 Est GFR (Non-Af Amer) > 60 Glucose 147 H Calcium 8.6 Phosphorus 2.9 Magnesium 1.7 Impressions: Abdomen/Pelvis CT 02/08/17 15:32 IMPRESSION: 1. Peripheral emphysematous blebs are present, more on the right. A minimal pneumothorax cannot entirely be excluded on the right, although the appearance may be secondary to contiguous blebs. 2. A limited infiltrate or bronchiectasis cannot be excluded in the right lower lobe. 3. Nonobstructing intrarenal calculi. 4. Partial small bowel obstruction, likely at the distal jejunum or proximal ileum. 5. Mild thickening of the wall of the sigmoid colon and rectum, possible inflammatory bowel change. 6. 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 KUB X-Ray 02/09/17 00:00 IMPRESSION: Nonspecific bowel gas pattern. Assessment & Plan - Diagnosis (1) Colitis Is this a current diagnosis for this admission?: Yes (2) Partial small bowel obstruction Is this a current diagnosis for this admission?: Yes (3) Decubitus ulcer limited to breakdown of skin (stage 2) Qualifiers: Pressure ulcer location: sacral region Qualified Code(s): L89.152 - Pressure ulcer of sacral region, stage 2 Is this a current diagnosis for this admission?: Yes (4) Dehydration Is this a current diagnosis for this admission?: Yes (5) Renal calculi Is this a current diagnosis for this admission?: Yes (6) Uncontrolled hypertension Is this a current diagnosis for this admission?: Yes (7) Coronary artery disease Qualifiers: Coronary Disease-Associated Artery/Lesion type: [place] artery [place] vs. transplanted heart: [place] heart Associated angina: without angina Qualified Code(s): I25.10 - Atherosclerotic heart disease of [place] coronary artery without angina pectoris Is this a current diagnosis for this admission?: Yes (8) Hyperlipidemia Qualifiers: Hyperlipidemia type: unspecified Qualified Code(s): E78.5 - Hyperlipidemia , unspecified Is this a current diagnosis for this admission?: Yes (9) Diabetes mellitus type 2 in nonobese Is this a current diagnosis for this admission?: Yes (10) BPH (benign prostatic hyperplasia) Qualifiers: Lower urinary tract symptom presence: unspecified whether lower urinary tract symptoms present Qualified Code(s): N40.0 - Benign prostatic hyperplasia without lower urinary tract symptoms Is this a current diagnosis for this admission?: Yes (11) History of prostate cancer Is this a current diagnosis for this admission?: Yes - Time Time Spent with patient: 25-34 minutes - Plan Summary Plan Summary: Continue antibiotics for presumed colitis. We will monitor hemoglobin hematocrit. Patient's lower GI bleeding likely related to the colitis. We will continue to monitor. In the meantime case was discussed with surgical service. We will repeat KUB in the morning and subsequently advance diet then. Continue supportive care.
[2017-02-09] MEDS: ACETAMINOPHEN 325 MG TABLET PO PRN ×2 (16:29→23:31)
[2017-02-09] MEDS: NORMAL SALINE 1000 ML 1,000 ML IV PRN (16:31)
[2017-02-09] MEDS: LEVOFLOXACIN 500 MG/D5W RTU 500 MG/100 ML RTUPB IV SCH (22:19)
[2017-02-10] MEDS: LANSOPRAZOLE 30 MG TAB.RAP.DR PO SCH (05:12)
[2017-02-10] MEDS: METRONIDAZOLE 500 MG/NS RTU 100 ML IV SCH ×3 (05:13→17:39)
[2017-02-10 05:50] LABS: HEMATOCRIT 27.4 % (37.9-51.0); HEMOGLOBIN 8.9 g/dL (13.5-17.0); HGB HCT DIFFERENCE -0.7; MEAN CORPUSCULAR HEMOGLOBIN 25.5 pg (27.0-33.4); MEAN CORPUSCULAR HGB CONC 32.6 g/dL (32.0-36.0); MEAN CORPUSCULAR VOLUME 78 fl (80-97); RED BLOOD COUNT 3.51 10^6/uL (4.35-5.55); RED CELL DISTRIBUTION WIDTH 17.1 % (11.5-14.0); WHITE BLOOD COUNT 8.7 10^3/uL (4.0-10.5)
[2017-02-10] MEDS: ACETAMINOPHEN 325 MG TABLET PO PRN ×2 (06:13→21:22)
[2017-02-10] MEDS: ENOXAPARIN SODIUM INJ 40 MG/0.4 ML DISP.SYRIN SUBCUT SCH (10:23)
[2017-02-10] MEDS: NORMAL SALINE 1000 ML 1,000 ML IV PRN (10:24)
--- NOTE | 2017-02-10 10:51 | PDOC PROGRESS REPORT ---
Subjective Progress Note for:: 02/10/17 Subjective:: Patient reportedly with pinkish stool but less. No reported gross blood. Patient reports no nausea or vomiting. Abdominal discomfort is improved. No reported diarrhea at this time. No shortness of breath chills nor fever. Physical Exam Vital Signs: Temp Pulse Resp BP Pulse Ox 98.3 F 78 16 153/71 H 97 02/10/17 07:36 02/10/17 07:36 02/10/17 07:36 02/10/17 07:36 02/10/17 07:36 Intake & Output 02/09/17 02/10/17 02/11/17 06:59 06:59 06:59 Intake Total 1906 2968 Output Total 2600 Balance 1906 368 Weight 65.2 kg 67.3 kg 67.3 kg General appearance: PRESENT: no acute distress, cooperative Head exam: PRESENT: normocephalic Eye exam: PRESENT: EOMI Mouth exam: PRESENT: moist, neck supple Neck exam: ABSENT: JVD Respiratory exam: PRESENT: clear to auscultation joseph. ABSENT: rhonchi, wheezes Cardiovascular exam: PRESENT: RRR. ABSENT: gallop GI/Abdominal exam: PRESENT: soft. ABSENT: distended, tenderness Extremities exam: ABSENT: pedal edema Neurological exam: PRESENT: alert, awake, oriented to situation Skin exam: PRESENT: dry, warm. ABSENT: cyanosis Results Laboratory Results: 02/10/17 04:59 02/09/17 04:42 02/10/17 04:59 WBC 8.7 RBC 3.51 L Hgb 8.9 L Hct 27.4 L MCV 78 L MCH 25.5 L MCHC 32.6 RDW 17.1 H Plt Count 230 Impressions: Abdomen/Pelvis CT 02/08/17 15:32 IMPRESSION: 1. Peripheral emphysematous blebs are present, more on the right. A minimal pneumothorax cannot entirely be excluded on the right, although the appearance may be secondary to contiguous blebs. 2. A limited infiltrate or bronchiectasis cannot be excluded in the right lower lobe. 3. Nonobstructing intrarenal calculi. 4. Partial small bowel obstruction, likely at the distal jejunum or proximal ileum. 5. Mild thickening of the wall of the sigmoid colon and rectum, possible inflammatory bowel change. 6. 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 KUB X-Ray 02/09/17 00:00 IMPRESSION: Nonspecific bowel gas pattern. Assessment & Plan - Diagnosis (1) Colitis Is this a current diagnosis for this admission?: Yes (2) Partial small bowel obstruction Is this a current diagnosis for this admission?: Yes (3) Decubitus ulcer limited to breakdown of skin (stage 2) Qualifiers: Pressure ulcer location: sacral region Qualified Code(s): L89.152 - Pressure ulcer of sacral region, stage 2 Is this a current diagnosis for this admission?: Yes (4) Dehydration Is this a current diagnosis for this admission?: Yes (5) Renal calculi Is this a current diagnosis for this admission?: Yes (6) Uncontrolled hypertension Is this a current diagnosis for this admission?: Yes (7) Coronary artery disease Qualifiers: Coronary Disease-Associated Artery/Lesion type: [place] artery [place] vs. transplanted heart: [place] heart Associated angina: without angina Qualified Code(s): I25.10 - Atherosclerotic heart disease of [place] coronary artery without angina pectoris Is this a current diagnosis for this admission?: Yes (8) Hyperlipidemia Qualifiers: Hyperlipidemia type: unspecified Qualified Code(s): E78.5 - Hyperlipidemia , unspecified Is this a current diagnosis for this admission?: Yes (9) Diabetes mellitus type 2 in nonobese Is this a current diagnosis for this admission?: Yes (10) BPH (benign prostatic hyperplasia) Qualifiers: Lower urinary tract symptom presence: unspecified whether lower urinary tract symptoms present Qualified Code(s): N40.0 - Benign prostatic hyperplasia without lower urinary tract symptoms Is this a current diagnosis for this admission?: Yes (11) History of prostate cancer Is this a current diagnosis for this admission?: Yes - Time Time Spent with patient: 25-34 minutes - Plan Summary Plan Summary: Continue antibiotic. Begin clear liquid diet. Recheck hemoglobin hematocrit in the morning and transfuse if needed. Decrease intravenous fluids. Continue supportive care.
[2017-02-10] MEDS: INSULIN REG, HUMAN 100 UNIT/ML 3 ML VIAL (PYX) SUBCUT PRN ×2 (17:38→21:21)
--- NOTE | 2017-02-10 18:24 | PDOC PROGRESS REPORT ---
Subjective Progress Note for:: 02/10/17 Subjective:: Patient states that he is feeling better. Had normal bowel movements without blood. Is on clear liquid diet. Physical Exam Vital Signs: Temp Pulse Resp BP Pulse Ox 99.0 F 85 16 150/77 H 99 02/10/17 15:30 02/10/17 15:30 02/10/17 15:30 02/10/17 15:30 02/10/17 15:30 Intake & Output 02/09/17 02/10/17 02/11/17 06:59 06:59 06:59 Intake Total 1906 2968 Output Total 2600 Balance 1906 368 Weight 65.2 kg 67.3 kg 67.3 kg General appearance: PRESENT: no acute distress Head exam: PRESENT: atraumatic Eye exam: PRESENT: EOMI Mouth exam: PRESENT: moist Neck exam: PRESENT: full ROM Respiratory exam: PRESENT: clear to auscultation joseph GI/Abdominal exam: PRESENT: normal bowel sounds. ABSENT: tenderness Rectal exam: PRESENT: deferred Extremities exam: PRESENT: full ROM Musculoskeletal exam: PRESENT: full ROM Neurological exam: PRESENT: alert, awake Skin exam: PRESENT: normal color Results Laboratory Results: 02/10/17 04:59 02/09/17 04:42 02/10/17 04:59 WBC 8.7 RBC 3.51 L Hgb 8.9 L Hct 27.4 L MCV 78 L MCH 25.5 L MCHC 32.6 RDW 17.1 H Plt Count 230 Impressions: Abdomen/Pelvis CT 02/08/17 15:32 IMPRESSION: 1. Peripheral emphysematous blebs are present, more on the right. A minimal pneumothorax cannot entirely be excluded on the right, although the appearance may be secondary to contiguous blebs. 2. A limited infiltrate or bronchiectasis cannot be excluded in the right lower lobe. 3. Nonobstructing intrarenal calculi. 4. Partial small bowel obstruction, likely at the distal jejunum or proximal ileum. 5. Mild thickening of the wall of the sigmoid colon and rectum, possible inflammatory bowel change. 6. 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 KUB X-Ray 02/09/17 00:00 IMPRESSION: Nonspecific bowel gas pattern. Assessment & Plan - Diagnosis (1) Colitis Is this a current diagnosis for this admission?: Yes Plan: Abdominal issues are improving. Evidence of colitis is solving. It feels better. Bowels are returning to normal. Diet is being tolerated. I feel this patient has any surgical issues at this time.
[2017-02-10] MEDS: LEVOFLOXACIN 500 MG/D5W RTU 500 MG/100 ML RTUPB IV SCH (21:21)
[2017-02-11] MEDS: METRONIDAZOLE 500 MG/NS RTU 100 ML IV SCH ×3 (00:58→11:17)
[2017-02-11] MEDS: NORMAL SALINE 1000 ML 1,000 ML IV PRN ×2 (05:24→23:47)
[2017-02-11] MEDS: LANSOPRAZOLE 30 MG TAB.RAP.DR PO SCH (05:24)
[2017-02-11 06:26] LABS: HEMATOCRIT 29.2 % (37.9-51.0); HEMOGLOBIN 9.6 g/dL (13.5-17.0); HGB HCT DIFFERENCE -0.4; MEAN CORPUSCULAR HEMOGLOBIN 25.4 pg (27.0-33.4); MEAN CORPUSCULAR HGB CONC 32.8 g/dL (32.0-36.0); MEAN CORPUSCULAR VOLUME 78 fl (80-97); RED BLOOD COUNT 3.77 10^6/uL (4.35-5.55); RED CELL DISTRIBUTION WIDTH 17.1 % (11.5-14.0)
[2017-02-11] MEDS: INSULIN REG, HUMAN 100 UNIT/ML 3 ML VIAL (PYX) SUBCUT PRN ×3 (07:56→22:04)
[2017-02-11] MEDS: METOPROLOL SUCCINATE 25 MG TAB.SR.24H PO SCH (09:50)
[2017-02-11] MEDS: ENOXAPARIN SODIUM INJ 40 MG/0.4 ML DISP.SYRIN SUBCUT SCH (09:50)
--- NOTE | 2017-02-11 11:44 | PDOC PROGRESS REPORT ---
Subjective Progress Note for:: 02/11/17 Subjective:: Patient is feeling better. Patient reports diarrhea resolved. No reported rectal bleeding. Denies any PND orthopnea. Recent tolerating diet. No chills fever nor respiratory distress. Physical Exam Vital Signs: Temp Pulse Resp BP Pulse Ox 98.0 F 86 16 162/84 H 98 02/11/17 07:50 02/11/17 07:50 02/11/17 07:50 02/11/17 07:50 02/11/17 07:50 Intake & Output 02/10/17 02/11/17 02/12/17 06:59 06:59 06:59 Intake Total 2968 4590 Output Total 2600 2350 Balance 368 2240 Weight 67.3 kg 66.7 kg General appearance: PRESENT: no acute distress, cooperative Head exam: PRESENT: normocephalic Eye exam: PRESENT: EOMI Mouth exam: PRESENT: moist, neck supple Neck exam: ABSENT: JVD Respiratory exam: PRESENT: clear to auscultation joseph. ABSENT: rhonchi, wheezes Cardiovascular exam: PRESENT: RRR. ABSENT: gallop GI/Abdominal exam: PRESENT: hyperactive bowel sounds, soft, tenderness - Improved and less.. ABSENT: distended Extremities exam: ABSENT: pedal edema Neurological exam: PRESENT: alert, awake, oriented to situation Skin exam: PRESENT: dry, warm. ABSENT: cyanosis Results Laboratory Results: 02/11/17 05:32 02/09/17 04:42 02/11/17 05:32 WBC 8.0 RBC 3.77 L Hgb 9.6 L Hct 29.2 L MCV 78 L MCH 25.4 L MCHC 32.8 RDW 17.1 H Plt Count 235 02/09/17 05:35 Clean Catch Midstream Urine Culture - Final Mixed Urogenital Elizabeth Impressions: Abdomen/Pelvis CT 02/08/17 15:32 IMPRESSION: 1. Peripheral emphysematous blebs are present, more on the right. A minimal pneumothorax cannot entirely be excluded on the right, although the appearance may be secondary to contiguous blebs. 2. A limited infiltrate or bronchiectasis cannot be excluded in the right lower lobe. 3. Nonobstructing intrarenal calculi. 4. Partial small bowel obstruction, likely at the distal jejunum or proximal ileum. 5. Mild thickening of the wall of the sigmoid colon and rectum, possible inflammatory bowel change. 6. 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 KUB X-Ray 02/09/17 00:00 IMPRESSION: Nonspecific bowel gas pattern. Assessment & Plan - Diagnosis (1) Colitis Is this a current diagnosis for this admission?: Yes (2) Partial small bowel obstruction Is this a current diagnosis for this admission?: Yes (3) Decubitus ulcer limited to breakdown of skin (stage 2) Qualifiers: Pressure ulcer location: sacral region Qualified Code(s): L89.152 - Pressure ulcer of sacral region, stage 2 Is this a current diagnosis for this admission?: Yes (4) Dehydration Is this a current diagnosis for this admission?: Yes (5) Renal calculi Is this a current diagnosis for this admission?: Yes (6) Uncontrolled hypertension Is this a current diagnosis for this admission?: Yes (7) Coronary artery disease Qualifiers: Coronary Disease-Associated Artery/Lesion type: [place] artery [place] vs. transplanted heart: [place] heart Associated angina: without angina Qualified Code(s): I25.10 - Atherosclerotic heart disease of [place] coronary artery without angina pectoris Is this a current diagnosis for this admission?: Yes (8) Hyperlipidemia Qualifiers: Hyperlipidemia type: unspecified Qualified Code(s): E78.5 - Hyperlipidemia , unspecified Is this a current diagnosis for this admission?: Yes (9) Diabetes mellitus type 2 in nonobese Is this a current diagnosis for this admission?: Yes (10) BPH (benign prostatic hyperplasia) Qualifiers: Lower urinary tract symptom presence: unspecified whether lower urinary tract symptoms present Qualified Code(s): N40.0 - Benign prostatic hyperplasia without lower urinary tract symptoms Is this a current diagnosis for this admission?: Yes (11) History of prostate cancer Is this a current diagnosis for this admission?: Yes - Time Time Spent with patient: 25-34 minutes - Plan Summary Plan Summary: We are going to advance the patient's diet. We will discontinue intravenous antibiotic and shifted to oral. Increase activity and physical therapy. Continue supportive care.
--- NOTE | 2017-02-11 11:49 | PDOC PROGRESS REPORT ---
Subjective Progress Note for:: 02/11/17 Subjective:: Patient states that he feels better. Bowel movements have returned to normal. Physical Exam Vital Signs: Temp Pulse Resp BP Pulse Ox 98.0 F 86 16 162/84 H 98 02/11/17 07:50 02/11/17 07:50 02/11/17 07:50 02/11/17 07:50 02/11/17 07:50 Intake & Output 02/10/17 02/11/17 02/12/17 06:59 06:59 06:59 Intake Total 2968 4590 Output Total 2600 2350 Balance 368 2240 Weight 67.3 kg 66.7 kg Additional comments: Physical exam is unchanged. The abdomen is soft and nontender. Bowel sounds are normal. Results Laboratory Results: 02/11/17 05:32 02/09/17 04:42 02/11/17 05:32 WBC 8.0 RBC 3.77 L Hgb 9.6 L Hct 29.2 L MCV 78 L MCH 25.4 L MCHC 32.8 RDW 17.1 H Plt Count 235 02/09/17 05:35 Clean Catch Midstream Urine Culture - Final Mixed Urogenital Elizabeth Impressions: Abdomen/Pelvis CT 02/08/17 15:32 IMPRESSION: 1. Peripheral emphysematous blebs are present, more on the right. A minimal pneumothorax cannot entirely be excluded on the right, although the appearance may be secondary to contiguous blebs. 2. A limited infiltrate or bronchiectasis cannot be excluded in the right lower lobe. 3. Nonobstructing intrarenal calculi. 4. Partial small bowel obstruction, likely at the distal jejunum or proximal ileum. 5. Mild thickening of the wall of the sigmoid colon and rectum, possible inflammatory bowel change. 6. 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 KUB X-Ray 02/09/17 00:00 IMPRESSION: Nonspecific bowel gas pattern. Assessment & Plan - Diagnosis (1) Colitis Is this a current diagnosis for this admission?: Yes Plan: Further recommendations. No surgery is indicated. Surgery will sign off. Discussed with Dr. Osorio.
[2017-02-11] MEDS: ACETAMINOPHEN 325 MG TABLET PO PRN ×3 (13:27→23:40)
[2017-02-11] MEDS: METRONIDAZOLE 500 MG TABLET PO SCH ×2 (17:31→23:39)
[2017-02-12] MEDS: ACETAMINOPHEN 325 MG TABLET PO PRN ×5 (02:35→21:11)
[2017-02-12 05:15] LABS: HEMATOCRIT 28.9 % (37.9-51.0); HEMOGLOBIN 9.5 g/dL (13.5-17.0); HGB HCT DIFFERENCE -0.4; MEAN CORPUSCULAR HEMOGLOBIN 25.3 pg (27.0-33.4); MEAN CORPUSCULAR HGB CONC 32.8 g/dL (32.0-36.0); MEAN CORPUSCULAR VOLUME 77 fl (80-97); RED BLOOD COUNT 3.75 10^6/uL (4.35-5.55); RED CELL DISTRIBUTION WIDTH 17.1 % (11.5-14.0); WHITE BLOOD COUNT 8.1 10^3/uL (4.0-10.5)
[2017-02-12] MEDS: METRONIDAZOLE 500 MG TABLET PO SCH ×4 (05:33→23:55)
[2017-02-12] MEDS: LANSOPRAZOLE 30 MG TAB.RAP.DR PO SCH (05:34)
[2017-02-12] MEDS: ENOXAPARIN SODIUM INJ 40 MG/0.4 ML DISP.SYRIN SUBCUT SCH (09:44)
[2017-02-12] MEDS: METOPROLOL SUCCINATE 25 MG TAB.SR.24H PO SCH (09:45)
--- NOTE | 2017-02-12 12:24 | PDOC PROGRESS REPORT ---
Subjective Progress Note for:: 02/12/17 Subjective:: Patient continues to have some mild rectal bleeding but abdominal discomfort is better. Tolerating full liquid diet. Denies dizziness or lightheadedness. Able to ambulate with physical therapy. No chills or fever nor shortness of breath. Physical Exam Vital Signs: Temp Pulse Resp BP Pulse Ox 98.2 F 68 16 147/64 H 99 02/12/17 04:29 02/12/17 08:12 02/12/17 08:12 02/12/17 08:12 02/12/17 08:12 Intake & Output 02/11/17 02/12/17 02/13/17 06:59 06:59 06:59 Intake Total 4590 3708 Output Total 2350 1300 Balance 2240 2408 Weight 66.7 kg 69.4 kg General appearance: PRESENT: no acute distress, cooperative Head exam: PRESENT: normocephalic Eye exam: PRESENT: EOMI Mouth exam: PRESENT: moist, neck supple Neck exam: ABSENT: JVD Respiratory exam: PRESENT: clear to auscultation joseph. ABSENT: rhonchi, wheezes Cardiovascular exam: PRESENT: RRR. ABSENT: gallop GI/Abdominal exam: PRESENT: soft. ABSENT: distended, tenderness Extremities exam: ABSENT: pedal edema Neurological exam: PRESENT: alert, awake, oriented to situation Skin exam: PRESENT: dry, warm. ABSENT: cyanosis Results Laboratory Results: 02/12/17 04:43 02/09/17 04:42 02/12/17 04:43 WBC 8.1 RBC 3.75 L Hgb 9.5 L Hct 28.9 L MCV 77 L MCH 25.3 L MCHC 32.8 RDW 17.1 H Plt Count 210 02/10/17 23:10 Stool - Stool - Final 02/09/17 05:35 Clean Catch Midstream Urine Culture - Final Mixed Urogenital Elizabeth Impressions: Abdomen/Pelvis CT 02/08/17 15:32 IMPRESSION: 1. Peripheral emphysematous blebs are present, more on the right. A minimal pneumothorax cannot entirely be excluded on the right, although the appearance may be secondary to contiguous blebs. 2. A limited infiltrate or bronchiectasis cannot be excluded in the right lower lobe. 3. Nonobstructing intrarenal calculi. 4. Partial small bowel obstruction, likely at the distal jejunum or proximal ileum. 5. Mild thickening of the wall of the sigmoid colon and rectum, possible inflammatory bowel change. 6. 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 KUB X-Ray 02/09/17 00:00 IMPRESSION: Nonspecific bowel gas pattern. Assessment & Plan - Diagnosis (1) Colitis Is this a current diagnosis for this admission?: Yes (2) Partial small bowel obstruction Is this a current diagnosis for this admission?: Yes (3) Decubitus ulcer limited to breakdown of skin (stage 2) Qualifiers: Pressure ulcer location: sacral region Qualified Code(s): L89.152 - Pressure ulcer of sacral region, stage 2 Is this a current diagnosis for this admission?: Yes (4) Dehydration Is this a current diagnosis for this admission?: Yes (5) Renal calculi Is this a current diagnosis for this admission?: Yes (6) Uncontrolled hypertension Is this a current diagnosis for this admission?: Yes (7) Coronary artery disease Qualifiers: Coronary Disease-Associated Artery/Lesion type: [place] artery [place] vs. transplanted heart: [place] heart Associated angina: without angina Qualified Code(s): I25.10 - Atherosclerotic heart disease of [place] coronary artery without angina pectoris Is this a current diagnosis for this admission?: Yes (8) Hyperlipidemia Qualifiers: Hyperlipidemia type: unspecified Qualified Code(s): E78.5 - Hyperlipidemia , unspecified Is this a current diagnosis for this admission?: Yes (9) Diabetes mellitus type 2 in nonobese Is this a current diagnosis for this admission?: Yes (10) BPH (benign prostatic hyperplasia) Qualifiers: Lower urinary tract symptom presence: unspecified whether lower urinary tract symptoms present Qualified Code(s): N40.0 - Benign prostatic hyperplasia without lower urinary tract symptoms Is this a current diagnosis for this admission?: Yes (11) History of prostate cancer Is this a current diagnosis for this admission?: Yes - Time Time Spent with patient: 15-24 minutes - Plan Summary Plan Summary: Continue antibiotics and gentle IV fluids. Recheck hematocrit in the morning and transfuse as needed if it falls below 8. Consult gastroenterology for endoscopic studies. I have discussed his case with Dr. Tang who agreed to see the patient.
--- NOTE | 2017-02-12 13:17 | PDOC CONSULTATION ---
Consultation Consult Date: 02/12/17 Attending physician:: CHAPARRITA BARRIOS Consult reason:: abnormal CT scan with thickening in the sigmoid and colon. admitted for infectious colitis. blood in stools History of Present Illness Admission Date/PCP: 02/08/17 18:30 RHINA LI History of Present Illness: I am asked to see this patient by Dr Osorio, patient was admitted towards the end of last week surgery has been seeing this patient, and has signed off, according to Dr Osorio, it was felt that he has ischemic colitis patient states that he thought he had an infection and therefore had diarrhea, towards the end of that , had some blood in the stools apparently has resolved his CT scan was abnormal , it was noted that there was some thickening in the sigmoid and the rectum that is a little unusual for ischemic colitis which tends to occur at the watershed area of the splenic flexure patient had colonoscopy many years ago however the etiology is unknown I have spoken to the patient, it would be prudent to have him undergo a colonoscopy he seems to be willing there is no nausea or vomiting patient denies any melena denies any early satiety Past Medical History Cardiac Medical History: Reports: Coronary Artery Disease, Myocardial Infarction , Hyperlipidema, Hypertension Endocrine Medical History: Reports: Diabetes Mellitus Type 2 - IDDM Past Surgical History Past Surgical History: Reports: Cardiac Catheterization, Orthopedic Surgery - right shoulder, Other - Radiation implants for prostate cancer Social History Smoking Status: Former Smoker Number of Years Smokin Last Time Smoked: 30 yrs ago Frequency of Alcohol Use: None Hx Recreational Drug Use: No Drugs: None Hx Prescription Drug Abuse: No - Advance Directive Resuscitation Status: Full Code Family History Family History: None - Unknown to the patient Parental Family History Reviewed: Yes Children Family History Reviewed: Unknown Sibling(s) Family History Reviewed.: Unknown Medication/Allergy Home Medications: Acetaminophen [Tylenol] 325 mg PO Q4HP PRN 02/08/17 Ezetimibe [Zetia 10 mg Tablet] 10 mg PO DAILY 02/08/17 Hydroxyzine HCl 10 mg PO Q12 02/08/17 Insulin Glargine,Hum.rec.anlog [Lantus] 15 unit SQ QHS 02/08/17 Insulin Lispro [Humalog] 5 unit SQ AC 02/08/17 Isosorbide Mononitrate [Isosorbide Mononitrate ER] 30 mg PO DAILY 02/08/17 Metoprolol Succinate [Toprol Xl 25 mg Tab.sr] 25 mg PO DAILY 02/08/17 Oxycodone HCl [Oxycontin] 15 mg PO Q4H 02/08/17 Ramipril [Altace 5 mg Capsule] 5 mg PO DAILY 02/08/17 Silodosin [Rapaflo] 8 mg PO DAILY 02/08/17 Simvastatin [Zocor 40 mg Tablet] 40 mg PO DAILY 02/08/17 Zolpidem Tartrate [Ambien] 10 mg PO QHS 02/08/17 Allergies/Adverse Reactions: tamsulosin [From Flomax] Allergy (Verified 02/09/17 04:59) tobramycin Allergy (Verified 02/09/17 04:59) Review of Systems Constitutional: ABSENT: fever(s), headache(s), night sweats, weakness Eyes: ABSENT: visual disturbances Ears: ABSENT: hearing changes Nose, Mouth, and Throat: ABSENT: mouth pain, sore throat Cardiovascular: ABSENT: chest pain, edema, orthropnea Respiratory: ABSENT: dyspnea, hemoptysis Gastrointestinal: PRESENT: diarrhea. ABSENT: dysphagia, hematochezia, melena, nausea, vomiting Genitourinary: ABSENT: dysuria, hematuria Musculoskeletal: ABSENT: deformity, joint swelling Integumentary: ABSENT: lesions, pruritus Neurological: ABSENT: syncope, tingling, tremor(s), vertigo Endocrine: ABSENT: polydipsia, polyphagia, polyuria Hematologic/Lymphatic: ABSENT: easy bruising Physical Exam Vital Signs: Temp Pulse Resp BP Pulse Ox 98.2 F 68 16 147/64 H 99 02/12/17 04:29 02/12/17 08:12 02/12/17 08:12 02/12/17 08:12 02/12/17 08:12 Intake & Output 02/11/17 02/12/17 02/13/17 06:59 06:59 06:59 Intake Total 4590 3708 Output Total 2350 1300 Balance 2240 2408 Weight 66.7 kg 69.4 kg General appearance: PRESENT: no acute distress, well-developed, well-nourished Head exam: PRESENT: atraumatic, normocephalic Eye exam: PRESENT: EOMI, PERRLA. ABSENT: nystagmus, periorbital swelling, scleral icterus Mouth exam: PRESENT: moist, neck supple Throat exam: ABSENT: tonsillar exudate, tonsillogmegaly Neck exam: ABSENT: meningismus, tenderness, thyromegaly Respiratory exam: PRESENT: symmetrical, unlabored. ABSENT: tachypnea, wheezes Cardiovascular exam: PRESENT: RRR, +S1, +S2 GI/Abdominal exam: PRESENT: soft. ABSENT: rebound, rigid, tenderness Extremities exam: ABSENT: joint swelling Musculoskeletal exam: PRESENT: full ROM Neurological exam: PRESENT: oriented to time, oriented to situation, reflexes normal, CN II-XII grossly intact Psychiatric exam: PRESENT: appropriate affect Skin exam: PRESENT: normal color. ABSENT: mottled, pallor, petechiae, urticaria , vesicles Results Laboratory Results: 02/12/17 04:43 02/09/17 04:42 02/12/17 04:43 WBC 8.1 RBC 3.75 L Hgb 9.5 L Hct 28.9 L MCV 77 L MCH 25.3 L MCHC 32.8 RDW 17.1 H Plt Count 210 02/10/17 23:10 Stool - Stool - Final Impressions: Abdomen/Pelvis CT 02/08/17 15:32 IMPRESSION: 1. Peripheral emphysematous blebs are present, more on the right. A minimal pneumothorax cannot entirely be excluded on the right, although the appearance may be secondary to contiguous blebs. 2. A limited infiltrate or bronchiectasis cannot be excluded in the right lower lobe. 3. Nonobstructing intrarenal calculi. 4. Partial small bowel obstruction, likely at the distal jejunum or proximal ileum. 5. Mild thickening of the wall of the sigmoid colon and rectum, possible inflammatory bowel change. 6. 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 KUB X-Ray 02/09/17 00:00 IMPRESSION: Nonspecific bowel gas pattern. Assessment & Plan - Diagnosis (1) Blood in stool Plan: differential to include possible internal hemorrhoids, diverticulosis has had scope in the remote past will need repeat colonoscopy Risks, benefits and alternatives are discussed with the patient in detail further recommendations to follow (2) Colitis Is this a current diagnosis for this admission?: Yes Plan: could be infections vs possible ischemic would be prudent to proceed with colonoscopy the area of involvement is in the distal portion and would be less likely to be ischemic colonoscopy should be able to sort out the issues further recommendations to follow - Time Time Spent: 50 to 70 Minutes
[2017-02-12] MEDS: INSULIN REG, HUMAN 100 UNIT/ML 3 ML VIAL (PYX) SUBCUT PRN ×2 (13:29→18:31)
[2017-02-12] MEDS: LEVOFLOXACIN 750 MG TABLET PO SCH (13:30)
[2017-02-12] MEDS ORDERED: PEG 3350/NA SULF,BICARB,CL/KCL 4000 ML PO PRN (14:00)
[2017-02-13] MEDS: METRONIDAZOLE 500 MG TABLET PO SCH ×4 (05:49→23:08)
[2017-02-13] MEDS: LANSOPRAZOLE 30 MG TAB.RAP.DR PO SCH (05:50)
[2017-02-13 07:04] LABS: HEMATOCRIT 34.4 % (37.9-51.0); HEMOGLOBIN 11.1 g/dL (13.5-17.0); HGB HCT DIFFERENCE -1.1; MEAN CORPUSCULAR HEMOGLOBIN 24.8 pg (27.0-33.4); MEAN CORPUSCULAR HGB CONC 32.1 g/dL (32.0-36.0); MEAN CORPUSCULAR VOLUME 77 fl (80-97); RED BLOOD COUNT 4.45 10^6/uL (4.35-5.55); RED CELL DISTRIBUTION WIDTH 16.7 % (11.5-14.0); WHITE BLOOD COUNT 8.6 10^3/uL (4.0-10.5)
[2017-02-13] MEDS: METOPROLOL SUCCINATE 25 MG TAB.SR.24H PO SCH (11:26)
[2017-02-13] MEDS: ENOXAPARIN SODIUM INJ 40 MG/0.4 ML DISP.SYRIN SUBCUT SCH (11:28)
[2017-02-13] MEDS ORDERED: ONDANSETRON HCL INJ/PF 4 MG/2 ML SDV ONE (12:03)
[2017-02-13] MEDS ORDERED: DIPHENHYDRAMINE HCL 50 MG/ML VIAL ONE (12:03)
[2017-02-13] MEDS ORDERED: NALOXONE HCL INJ/PF 0.4 MG/1 ML SDV ONE (12:03)
[2017-02-13] MEDS ORDERED: FLUMAZENIL INJ 0.5 MG/5 ML VIAL ONE (12:04)
[2017-02-13] MEDS ORDERED: EPINEPHRINE INJ 1 MG/10 ML DISP.SYRIN ONE (12:04)
[2017-02-13] MEDS ORDERED: GLUCAGON,HUMAN RECOMB 1 MG INJ ONE (12:04)
[2017-02-13] MEDS ORDERED: FENTANYL CITRATE INJ/PF 100 MCG/2 ML AMPUL ONE (12:04)
[2017-02-13] MEDS: MIDAZOLAM 2 MG/2 ML INJ ONE ×2 (12:48→12:55)
--- NOTE | 2017-02-13 13:13 | Operative Report ---
Operative Report DATE OF SURGERY: 02/13/17 Operative Report: The risks, benefits and alternatives of the procedure including risks of bleeding, perforation requiring surgery are explained to the patient in detail and informed consent was obtained. The patient is taken to the endoscopy suite and placed in the left, lateral decubital position. Timeout was called. Conscious sedation medications are provided. A rectal examination was done which did not reveal any masses, tears or fissures. An Olympus videoscope was inserted into the patient's rectum. Following insufflation the scope was then carefully advanced all the way to the cecum. The cecum was identified by the usual anatomical landmarks including the ileocecal valve as well as the appendiceal office. Photodocumentation is obtained. Scope was then sequentially pulled back via the various segments of the colon including the ascending colon, hepatic flexure, transverse colon, splenic flexure, descending colon fun to the rectosigmoid portions of the colon. PREOPERATIVE DIAGNOSIS: Rectal bleeding POSTOPERATIVE DIAGNOSIS: Presumed ischemic colitis on the left side of the colon status post biopsy. There may be a superinfection of C. difficile OPERATION: Colonoscopy with biopsy SURGEON: CHAPARRITA BARRIOS ANESTHESIA: Moderate Sedation - 3 mg of Versed, 25 mcg of fentanyl. Conscious sedation monitoring time 30 minutes. TISSUE REMOVED OR ALTERED: As noted above. COMPLICATIONS: None. ESTIMATED BLOOD LOSS: None. INTRAOPERATIVE FINDINGS: As noted above. PROCEDURE: Patient tolerated procedure well. No immediate postprocedure complications are noted. Patient discharged back to his room in good condition. Resume previous diet Resume previous activity level He will probably need antibiotics and if biopsies are positive for C. difficile that would need treatment for that too. Continue current care. We will await biopsies.
--- NOTE | 2017-02-13 14:39 | PDOC PROGRESS REPORT ---
Subjective Progress Note for:: 02/13/17 Subjective:: Denies any complaints currently. Physical Exam Vital Signs: Temp Pulse Resp BP Pulse Ox 97.6 F 79 18 145/74 H 95 02/13/17 13:45 02/13/17 13:45 02/13/17 13:45 02/13/17 13:45 02/13/17 13:45 Intake & Output 02/12/17 02/13/17 02/14/17 06:59 06:59 06:59 Intake Total 3708 4908 400 Output Total 1300 600 Balance 2408 4308 400 Weight 69.4 kg 70.6 kg General appearance: PRESENT: no acute distress Eye exam: PRESENT: conjunctiva pink. ABSENT: scleral icterus Mouth exam: PRESENT: moist, tongue midline Neck exam: ABSENT: JVD Respiratory exam: PRESENT: clear to auscultation joseph. ABSENT: rales, rhonchi, wheezes Cardiovascular exam: PRESENT: RRR. ABSENT: diastolic murmur, rubs, systolic murmur GI/Abdominal exam: PRESENT: normal bowel sounds, soft, other - Palpable abdominal aortic aneurysm. ABSENT: distended, guarding, mass, organolmegaly, rebound, tenderness Extremities exam: ABSENT: calf tenderness, clubbing, pedal edema Neurological exam: PRESENT: alert, awake, oriented to person, oriented to place , oriented to time, oriented to situation, CN II-XII grossly intact. ABSENT: motor sensory deficit Psychiatric exam: PRESENT: appropriate affect Skin exam: PRESENT: dry, intact, warm. ABSENT: cyanosis, rash Results Laboratory Results: 02/13/17 06:14 02/09/17 04:42 02/13/17 06:14 WBC 8.6 RBC 4.45 Hgb 11.1 L Hct 34.4 L MCV 77 L MCH 24.8 L MCHC 32.1 RDW 16.7 H Plt Count 213 02/10/17 23:10 Stool - Stool - Final Impressions: Abdomen/Pelvis CT 02/08/17 15:32 IMPRESSION: 1. Peripheral emphysematous blebs are present, more on the right. A minimal pneumothorax cannot entirely be excluded on the right, although the appearance may be secondary to contiguous blebs. 2. A limited infiltrate or bronchiectasis cannot be excluded in the right lower lobe. 3. Nonobstructing intrarenal calculi. 4. Partial small bowel obstruction, likely at the distal jejunum or proximal ileum. 5. Mild thickening of the wall of the sigmoid colon and rectum, possible inflammatory bowel change. 6. 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 KUB X-Ray 02/09/17 00:00 IMPRESSION: Nonspecific bowel gas pattern. Assessment & Plan - Diagnosis (1) Partial small bowel obstruction Is this a current diagnosis for this admission?: Yes Plan: Possibly related to the colitis. This has resolved. (2) Colitis Is this a current diagnosis for this admission?: Yes Plan: Patient has been evaluated by gastroenterology who performed a colonoscopy today. Consistent with ischemic colitis. Also possibility of superinfection with C. difficile. Awaiting culture results. (3) Coronary artery disease Qualifiers: Coronary Disease-Associated Artery/Lesion type: [place] artery [place] vs. transplanted heart: [place] heart Associated angina: without angina Qualified Code(s): I25.10 - Atherosclerotic heart disease of [place] coronary artery without angina pectoris Is this a current diagnosis for this admission?: Yes Plan: Denies any chest pain. (4) Diabetes mellitus type 2 in nonobese Is this a current diagnosis for this admission?: Yes Plan: Continue with sliding scale coverage of insulin (5) Hyperlipidemia Qualifiers: Hyperlipidemia type: unspecified Qualified Code(s): E78.5 - Hyperlipidemia , unspecified Is this a current diagnosis for this admission?: Yes (6) Uncontrolled hypertension Is this a current diagnosis for this admission?: Yes Plan: Stable. (7) BPH (benign prostatic hyperplasia) Qualifiers: Lower urinary tract symptom presence: unspecified whether lower urinary tract symptoms present Qualified Code(s): N40.0 - Benign prostatic hyperplasia without lower urinary tract symptoms Is this a current diagnosis for this admission?: Yes - Time Time Spent with patient: 25-34 minutes - Inpatient Certification Medical Necessity: Need Close Monitoring Due to Risk of Patient Decompensation
[2017-02-13] MEDS: LEVOFLOXACIN 750 MG TABLET PO SCH (15:05)
[2017-02-13] MEDS: ACETAMINOPHEN 325 MG TABLET PO PRN (21:01)
[2017-02-13] MEDS: INSULIN REG, HUMAN 100 UNIT/ML 3 ML VIAL (PYX) SUBCUT PRN (23:09)
[2017-02-14] MEDS: ACETAMINOPHEN 325 MG TABLET PO PRN ×5 (04:04→23:27)
[2017-02-14] MEDS: LANSOPRAZOLE 30 MG TAB.RAP.DR PO SCH (06:03)
[2017-02-14] MEDS: METRONIDAZOLE 500 MG TABLET PO SCH ×4 (06:03→23:27)
[2017-02-14 08:48] LABS: ABSOLUTE BASOPHILS # (AUTO) 0.1 10^3/uL (0.0-0.2); ABSOLUTE EOSINOPHILS # (AUTO) 0.4 10^3/uL (0.0-0.6); ABSOLUTE MONOCYTES (AUTO) 0.7 10^3/uL (0.1-1.4); ABSOLUTE NEUT (AUTO) 4.1 10^3/uL (1.7-8.2); EOSINOPHILS % (AUTO) 6.3 % (0-6); HEMATOCRIT 33.2 % (37.9-51.0); HEMOGLOBIN 10.8 g/dL (13.5-17.0); HGB HCT DIFFERENCE -0.8; LYMPHOCYTES % (AUTO) 15.8 % (13-45); MEAN CORPUSCULAR HEMOGLOBIN 25.2 pg (27.0-33.4); MEAN CORPUSCULAR HGB CONC 32.7 g/dL (32.0-36.0); MEAN CORPUSCULAR VOLUME 77 fl (80-97); MONOCYTES % (AUTO) 10.9 % (3-13); RED CELL DISTRIBUTION WIDTH 17.1 % (11.5-14.0); WHITE BLOOD COUNT 6.2 10^3/uL (4.0-10.5)
[2017-02-14 08:59] LABS: ANION GAP 8 (5-19); BLOOD UREA NITROGEN 12 mg/dL (7-20); CALCIUM 8.7 mg/dL (8.4-10.2); CARBON DIOXIDE 30 mmol/L (22-30); CHLORIDE 102 mmol/L (98-107); GLUCOSE 154 mg/dL (75-110); POTASSIUM 3.5 mmol/L (3.6-5.0); SODIUM 139.8 mmol/L (137-145)
[2017-02-14] MEDS: ENOXAPARIN SODIUM INJ 40 MG/0.4 ML DISP.SYRIN SUBCUT SCH (09:04)
[2017-02-14] MEDS: METOPROLOL SUCCINATE 25 MG TAB.SR.24H PO SCH (09:04)
[2017-02-14] MEDS: TRIAMCINOLONE ACETONIDE 0.025% CREAM 15 GM TP SCH (09:04)
--- NOTE | 2017-02-14 11:55 | PDOC PROGRESS REPORT ---
Subjective Progress Note for:: 02/14/17 Subjective:: Patient underwent colonoscopy yesterday and tolerated the procedure. Clinically he had ulceration inflammation from the rectum all the way to the splenic flexure. Biopsies were obtained. Pathology confirms ischemic colitis. However there is no C. difficile. He needs to be on antibiotics at least for the next 2 weeks If he is able to tolerate combination of Cipro and Flagyl He is able to tolerate full liquids, advance as tolerated Hemoglobin is stable No postprocedure complications are noted. Physical Exam Vital Signs: Temp Pulse Resp BP Pulse Ox 97.9 F 73 17 138/70 H 100 02/14/17 11:31 02/14/17 11:31 02/14/17 11:31 02/14/17 11:31 02/14/17 11:31 Intake & Output 02/13/17 02/14/17 02/15/17 06:59 06:59 06:59 Intake Total 4908 1586 Output Total 600 1250 Balance 4308 336 Weight 70.6 kg 68.4 kg General appearance: PRESENT: no acute distress, well-developed, well-nourished Head exam: PRESENT: atraumatic, normocephalic Eye exam: PRESENT: EOMI, PERRLA. ABSENT: nystagmus, periorbital swelling, scleral icterus Mouth exam: PRESENT: moist, neck supple Throat exam: ABSENT: tonsillar exudate, tonsillogmegaly Neck exam: ABSENT: meningismus, tenderness, thyromegaly Respiratory exam: PRESENT: symmetrical, unlabored. ABSENT: tachypnea, wheezes Cardiovascular exam: PRESENT: RRR, +S1, +S2 GI/Abdominal exam: PRESENT: soft. ABSENT: rebound, rigid, tenderness Extremities exam: ABSENT: joint swelling Musculoskeletal exam: PRESENT: full ROM Neurological exam: PRESENT: oriented to time, oriented to situation, reflexes normal, CN II-XII grossly intact Psychiatric exam: PRESENT: appropriate affect Skin exam: PRESENT: normal color. ABSENT: mottled, urticaria, vesicles Results Laboratory Results: 02/14/17 08:30 02/14/17 08:30 02/14/17 02/14/17 08:30 08:30 WBC 6.2 RBC 4.30 L Hgb 10.8 L Hct 33.2 L MCV 77 L MCH 25.2 L MCHC 32.7 RDW 17.1 H Plt Count 241 Seg Neutrophils % 66.0 Lymphocytes % 15.8 Monocytes % 10.9 Eosinophils % 6.3 H Basophils % 1.0 Absolute Neutrophils 4.1 Absolute Lymphocytes 1.0 Absolute Monocytes 0.7 Absolute Eosinophils 0.4 Absolute Basophils 0.1 Sodium 139.8 Potassium 3.5 L Chloride 102 Carbon Dioxide 30 Anion Gap 8 BUN 12 Creatinine 0.70 Est GFR ( Amer) > 60 Est GFR (Non-Af Amer) > 60 Glucose 154 H Calcium 8.7 02/10/17 23:10 Stool - Stool - Final 02/10/17 23:10 Stool - Stool Stool Culture - Final Impressions: Abdomen/Pelvis CT 02/08/17 15:32 IMPRESSION: 1. Peripheral emphysematous blebs are present, more on the right. A minimal pneumothorax cannot entirely be excluded on the right, although the appearance may be secondary to contiguous blebs. 2. A limited infiltrate or bronchiectasis cannot be excluded in the right lower lobe. 3. Nonobstructing intrarenal calculi. 4. Partial small bowel obstruction, likely at the distal jejunum or proximal ileum. 5. Mild thickening of the wall of the sigmoid colon and rectum, possible inflammatory bowel change. 6. 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 KUB X-Ray 02/09/17 00:00 IMPRESSION: Nonspecific bowel gas pattern. Assessment & Plan - Diagnosis (2) Colitis Is this a current diagnosis for this admission?: Yes Plan: Ischemic colitis. Continue antibiotics for 2 weeks. Hopefully can be discharged soon. Follow-up colonoscopy in about 6-8 weeks to document healing. - Time Time Spent with patient: 15-24 minutes
[2017-02-14] MEDS: INSULIN REG, HUMAN 100 UNIT/ML 3 ML VIAL (PYX) SUBCUT PRN ×2 (12:37→23:26)
[2017-02-14] MEDS: LEVOFLOXACIN 750 MG TABLET PO SCH (13:10)
--- NOTE | 2017-02-14 13:50 | PDOC PROGRESS REPORT ---
Subjective Progress Note for:: 02/14/17 Subjective:: Denies any complaints currently. Physical Exam Vital Signs: Temp Pulse Resp BP Pulse Ox 97.9 F 73 17 138/70 H 100 02/14/17 11:31 02/14/17 11:31 02/14/17 11:31 02/14/17 11:31 02/14/17 11:31 Intake & Output 02/13/17 02/14/17 02/15/17 06:59 06:59 06:59 Intake Total 4908 1586 Output Total 600 1250 Balance 4308 336 Weight 70.6 kg 68.4 kg General appearance: PRESENT: no acute distress Eye exam: PRESENT: conjunctiva pink. ABSENT: scleral icterus Mouth exam: PRESENT: moist, tongue midline Neck exam: ABSENT: JVD Respiratory exam: PRESENT: clear to auscultation joseph. ABSENT: rales, rhonchi, wheezes Cardiovascular exam: PRESENT: RRR. ABSENT: diastolic murmur, rubs, systolic murmur GI/Abdominal exam: PRESENT: normal bowel sounds, soft. ABSENT: distended, guarding, mass, organolmegaly, rebound, tenderness Extremities exam: ABSENT: calf tenderness, clubbing, pedal edema Neurological exam: PRESENT: alert, awake, oriented to person, oriented to place , oriented to time, oriented to situation, CN II-XII grossly intact. ABSENT: motor sensory deficit Psychiatric exam: PRESENT: appropriate affect Skin exam: PRESENT: other - Dressing in place on the sacrum. Results Laboratory Results: 02/14/17 08:30 02/14/17 08:30 02/14/17 02/14/17 08:30 08:30 WBC 6.2 RBC 4.30 L Hgb 10.8 L Hct 33.2 L MCV 77 L MCH 25.2 L MCHC 32.7 RDW 17.1 H Plt Count 241 Seg Neutrophils % 66.0 Lymphocytes % 15.8 Monocytes % 10.9 Eosinophils % 6.3 H Basophils % 1.0 Absolute Neutrophils 4.1 Absolute Lymphocytes 1.0 Absolute Monocytes 0.7 Absolute Eosinophils 0.4 Absolute Basophils 0.1 Sodium 139.8 Potassium 3.5 L Chloride 102 Carbon Dioxide 30 Anion Gap 8 BUN 12 Creatinine 0.70 Est GFR ( Amer) > 60 Est GFR (Non-Af Amer) > 60 Glucose 154 H Calcium 8.7 02/10/17 23:10 Stool - Stool - Final 02/10/17 23:10 Stool - Stool Stool Culture - Final Impressions: Abdomen/Pelvis CT 02/08/17 15:32 IMPRESSION: 1. Peripheral emphysematous blebs are present, more on the right. A minimal pneumothorax cannot entirely be excluded on the right, although the appearance may be secondary to contiguous blebs. 2. A limited infiltrate or bronchiectasis cannot be excluded in the right lower lobe. 3. Nonobstructing intrarenal calculi. 4. Partial small bowel obstruction, likely at the distal jejunum or proximal ileum. 5. Mild thickening of the wall of the sigmoid colon and rectum, possible inflammatory bowel change. 6. 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 KUB X-Ray 02/09/17 00:00 IMPRESSION: Nonspecific bowel gas pattern. Assessment & Plan - Diagnosis (1) Partial small bowel obstruction Is this a current diagnosis for this admission?: Yes Plan: Possibly related to the colitis. This has resolved. (2) Colitis Is this a current diagnosis for this admission?: Yes Plan: Colonoscopy and biopsies consistent with ischemic colitis. Negative for C. difficile. Continue with Cipro and Flagyl. (3) Coronary artery disease Qualifiers: Coronary Disease-Associated Artery/Lesion type: [place] artery [place] vs. transplanted heart: [place] heart Associated angina: without angina Qualified Code(s): I25.10 - Atherosclerotic heart disease of [place] coronary artery without angina pectoris Is this a current diagnosis for this admission?: Yes Plan: Denies any chest pain. (4) Diabetes mellitus type 2 in nonobese Is this a current diagnosis for this admission?: Yes Plan: Continue with sliding scale coverage of insulin (5) Hyperlipidemia Qualifiers: Hyperlipidemia type: unspecified Qualified Code(s): E78.5 - Hyperlipidemia , unspecified Is this a current diagnosis for this admission?: Yes (6) Uncontrolled hypertension Is this a current diagnosis for this admission?: Yes Plan: Stable. (7) BPH (benign prostatic hyperplasia) Qualifiers: Lower urinary tract symptom presence: unspecified whether lower urinary tract symptoms present Qualified Code(s): N40.0 - Benign prostatic hyperplasia without lower urinary tract symptoms Is this a current diagnosis for this admission?: Yes - Time Time Spent with patient: 25-34 minutes - Plan Summary Plan Summary: We will plan on discharge home tomorrow with home health.
[2017-02-14] MEDS: NORMAL SALINE 1000 ML 1,000 ML IV PRN (14:20)
[2017-02-15] MEDS: ACETAMINOPHEN 325 MG TABLET PO PRN ×3 (04:05→17:12)
[2017-02-15 06:07] LABS: ANION GAP 9 (5-19); BLOOD UREA NITROGEN 15 mg/dL (7-20); CALCIUM 8.8 mg/dL (8.4-10.2); CARBON DIOXIDE 27 mmol/L (22-30); CHLORIDE 103 mmol/L (98-107); CREATININE RESULT 0.73 mg/dL (0.52-1.25); GLUCOSE 135 mg/dL (75-110); POTASSIUM 3.4 mmol/L (3.6-5.0); SODIUM 138.6 mmol/L (137-145)
[2017-02-15] MEDS: METRONIDAZOLE 500 MG TABLET PO SCH ×3 (06:14→17:12)
[2017-02-15] MEDS: LANSOPRAZOLE 30 MG TAB.RAP.DR PO SCH (06:14)
[2017-02-15] MEDS: NORMAL SALINE 1000 ML 1,000 ML IV PRN (06:47)
[2017-02-15] MEDS: METOPROLOL SUCCINATE 25 MG TAB.SR.24H PO SCH (10:59)
[2017-02-15] MEDS: TRIAMCINOLONE ACETONIDE 0.025% CREAM 15 GM TP SCH (11:00)
[2017-02-15] MEDS: ENOXAPARIN SODIUM INJ 40 MG/0.4 ML DISP.SYRIN SUBCUT SCH (11:01)
[2017-02-15] MEDS: INSULIN REG, HUMAN 100 UNIT/ML 3 ML VIAL (PYX) SUBCUT PRN ×2 (12:59→17:58)
--- NOTE | 2017-02-15 13:44 | PDOC TRANSFER SUMMARY ---
General - Admit/Disc Date/PCP Admission Date/Primary Care Provider: 02/08/17 18:30 RHINA LI Discharge Date: 02/15/17 - Discharge Diagnosis (1) Partial small bowel obstruction Is this a current diagnosis for this admission?: Yes Summary: Secondary to colitis. This has resolved (2) Colitis Is this a current diagnosis for this admission?: Yes Summary: Patient was evaluated by gastroenterology performed a colonoscopy. Consistent with ischemic colitis. Patient has been treated with Levaquin and Flagyl. Will continue with an additional 7 days of Levaquin and Flagyl for the colitis. (3) Coronary artery disease Is this a current diagnosis for this admission?: Yes Summary: Patient has been chest pain-free during this hospitalization. (4) Diabetes mellitus type 2 in nonobese Is this a current diagnosis for this admission?: Yes (5) Hyperlipidemia Is this a current diagnosis for this admission?: Yes (6) Uncontrolled hypertension Is this a current diagnosis for this admission?: Yes (7) BPH (benign prostatic hyperplasia) Is this a current diagnosis for this admission?: Yes - Additional Information Resuscitation Status: Full Code Discharge Diet: Cardiac, Diabetic Discharge Activity: Activity As Tolerated Home Medications: Acetaminophen [Tylenol] 325 mg PO Q4HP PRN 02/08/17 Ezetimibe [Zetia 10 mg Tablet] 10 mg PO DAILY 02/08/17 Hydroxyzine HCl 10 mg PO Q12 02/08/17 Insulin Glargine,Hum.rec.anlog [Lantus] 15 unit SQ QHS 02/08/17 Insulin Lispro [Humalog] 5 unit SQ AC 02/08/17 Isosorbide Mononitrate [Isosorbide Mononitrate ER] 30 mg PO DAILY 02/08/17 Metoprolol Succinate [Toprol Xl 25 mg Tab.sr] 25 mg PO DAILY 02/08/17 Ramipril [Altace 5 mg Capsule] 5 mg PO DAILY 02/08/17 Silodosin [Rapaflo] 8 mg PO DAILY 02/08/17 Simvastatin [Zocor 40 mg Tablet] 40 mg PO DAILY 02/08/17 Bacitracin Zinc [Bacitracin Oint 15 gm] 1 applic TP PRN PRN tube 02/15/17 Flu Vacc [id number] 36Mos Up/Pf [Fluzone Adlt Quad [id number] Vac 0.5 ml Syr] 0.5 ml IM .DISCHARGE PRN disp.syrin 02/15/17 Levofloxacin [Levaquin 750 mg Tablet] 750 mg PO DAILY@1400 7 Days tablet Metronidazole [Flagyl 500 mg Tablet] 500 mg PO Q6 7 Days tablet 02/15/17 Triamcinolone Acetonide [Aristocort 0.025% Cream] 1 applic TP DAILY tube History of Present Illness Admission Date/PCP: 02/08/17 18:30 RHINA LI History of Present Illness: 81-year-old gentleman with a history of coronary artery disease who presented to emergency room with nausea vomiting and explosive diarrhea. The patient prior to presentation had been having complaints of constipation and took a bottle of mag citrate and then experienced the above symptoms. 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 There is no evidence for infection associated with these. He has been followed at the wound clinic for these wounds. Patient is admitted for presumed colitis given the findings on the CT scan. Hospital Course Hospital Course: 81-year-old male who presented with explosive diarrhea and was found to have colitis. It was not clear whether this was infectious colitis versus ischemic colitis. Patient was started on Levaquin and Flagyl because of the possibility of infectious colitis. Gastroenterology was consulted and they performed a colonoscopy that was consistent with ischemic colitis. Patient clinically improved and had no further diarrhea or blood per rectum. The patient's blood pressure has been good and he is to continue with an additional 7 days of antibiotics for his colitis. The patient also has decubiti on his bilateral buttocks. These are stage III and he has been monitored at the wound clinic. The patient is to continue with daily dressing changes to his bilateral buttock decubiti. The wound clinic has recommended that these be cleaned with normal saline and then treated with collagen with silver. Patient is then to have a clean dry cover applied and secured this with tape. Is to be changed daily. It is expected that there will be some mucus production with this. The patient will need to follow-up with the wound clinic also. Patient also has a history of diabetes and coronary artery disease. Both of those problems have been stable during this hospitalization. The patient is weak and lives alone and will be transferred to [facility] for rehab as well as wound care on his buttocks. 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 Physical Exam Vital Signs: Temp Pulse Resp BP Pulse Ox 97.9 F 70 18 157/74 H 100 02/15/17 11:31 02/15/17 11:31 02/15/17 11:31 02/15/17 11:31 02/15/17 11:31 Intake & Output 02/14/17 02/15/17 02/16/17 06:59 06:59 06:59 Intake Total 1586 2000 Output Total 1250 1950 Balance 336 50 Weight 68.4 kg 68.3 kg General appearance: PRESENT: no acute distress Eye exam: PRESENT: conjunctiva pink. ABSENT: scleral icterus Mouth exam: PRESENT: moist, tongue midline Neck exam: ABSENT: JVD Respiratory exam: PRESENT: clear to auscultation joseph. ABSENT: rales, rhonchi, wheezes Cardiovascular exam: PRESENT: RRR. ABSENT: diastolic murmur, rubs, systolic murmur GI/Abdominal exam: PRESENT: normal bowel sounds, soft. ABSENT: distended, guarding, mass, organolmegaly, rebound, tenderness Extremities exam: ABSENT: calf tenderness, clubbing, pedal edema Neurological exam: PRESENT: alert, awake, oriented to person, oriented to place , oriented to time, oriented to situation, CN II-XII grossly intact. ABSENT: motor sensory deficit Psychiatric exam: PRESENT: appropriate affect Skin exam: PRESENT: other - Patient has bilateral buttock decubiti stage III. No purulent drainage. Results Laboratory Results: 02/14/17 08:30 02/15/17 05:19 02/15/17 05:19 Sodium 138.6 Potassium 3.4 L Chloride 103 Carbon Dioxide 27 Anion Gap 9 BUN 15 Creatinine 0.73 Est GFR ( Amer) > 60 Est GFR (Non-Af Amer) > 60 Glucose 135 H Calcium 8.8 02/10/17 23:10 Stool - Stool - Final 02/10/17 23:10 Stool - Stool Stool Culture - Final Impressions: Abdomen/Pelvis CT 02/08/17 15:32 IMPRESSION: 1. Peripheral emphysematous blebs are present, more on the right. A minimal pneumothorax cannot entirely be excluded on the right, although the appearance may be secondary to contiguous blebs. 2. A limited infiltrate or bronchiectasis cannot be excluded in the right lower lobe. 3. Nonobstructing intrarenal calculi. 4. Partial small bowel obstruction, likely at the distal jejunum or proximal ileum. 5. Mild thickening of the wall of the sigmoid colon and rectum, possible inflammatory bowel change. 6. 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 KUB X-Ray 02/09/17 00:00 IMPRESSION: Nonspecific bowel gas pattern. Transfer Plan - Disposition Transfer Plan: Patient will be transferred to [facility] for rehab and dressing management. - Time Spent with Patient Time spent with patient: Greater than 30 Minutes Qualifiers PATEINT BEING DISCHARGED WITH ANY OF THE FOLLOWING DIAGNOSIS?: No Plan Discharge Plan: Patient will be transferred to [facility]. Will need follow-up with his primary care and gastrology in 2 weeks. Follow-up with the wound clinic in 2 weeks. Time Spent: Greater than 30 Minutes
[2017-02-15 15:26] VITALS: BP 167/78
[2017-02-15] MEDS: LEVOFLOXACIN 750 MG TABLET PO SCH (15:29)
== END 2017-02-15 19:00 | DRG 394 ==
LOC: ER 11:03 → UNDOADMIN 17:14 → EH 17:14 → 3W 19:15 → 4W 02-12 20:22
PROC: 0DBG8ZX Excision of Left Large Intestine, Via Natural or Artificial Opening Endoscopic, Diagnostic (ICD-10-PCS; principal; 2017-02-13 12:30)
DX: K55.9 Vascular disorder of intestine, unspecified (principal); K56.690 Other partial intestinal obstruction; L89.323 Pressure ulcer of left buttock, stage 3; L89.313 Pressure ulcer of right buttock, stage 3; K62.5 Hemorrhage of anus and rectum; I25.10 Atherosclerotic heart disease of native coronary artery without angina pectoris; E11.9 Type 2 diabetes mellitus without complications; E78.5 Hyperlipidemia, unspecified; L89.322 Pressure ulcer of left buttock, stage 2; L89.312 Pressure ulcer of right buttock, stage 2; Z60.2 Problems related to living alone; E86.0 Dehydration; N20.0 Calculus of kidney; N40.0 Benign prostatic hyperplasia without lower urinary tract symptoms; Z85.46 Personal history of malignant neoplasm of prostate; Z79.4 Long term (current) use of insulin; Z88.8 Allergy status to other drugs, medicaments and biological substances
CPT/HCPCS: 36415; 45380; 51701; 74000; 74177; 80048; 80053; 81001; 82962; 83690; 83735; 84100; 84443; 85025; 85027; 87040; 87045; 87086; 87205; 87493; 88305; 90686; 96361; 96374; 99285; G8978-GP; G8979-GP; J0171; J0744; J1200; J1610; J1650; J1815; J1956; J2250; J2310; J2405; J3010; J3490; J7030